=== PATIENT | male | born 1960 | race Caucasian/White ===

== ENCOUNTER 2016-04-27 11:31 | Outpatient (CLI) | payer MEDICARE | END 2016-04-27 11:32 | disposition home or self-care (01) | DX: Z00.00 Encounter for general adult medical examination without abnormal findings (principal); E78.5 Hyperlipidemia, unspecified; I10 Essential (primary) hypertension ==

== ENCOUNTER 2016-05-06 10:43 | Outpatient (CLI) | payer MEDICARE | END 2016-05-06 10:44 | disposition home or self-care (01) | DX: Z12.5 Encounter for screening for malignant neoplasm of prostate (principal) | CPT/HCPCS: 36415; G0103 ==

== ENCOUNTER 2016-12-08 11:30 | Outpatient (CLI) | payer MEDICARE | END 2016-12-08 11:45 | disposition home or self-care (01) | LOC: RT.N 11:30 | PROVIDERS: ATTEND Nurse Practitioner Gerontology | DX: I49.3 Ventricular premature depolarization (principal) | CPT/HCPCS: 93005 ==

== ENCOUNTER 2017-06-03 23:28 | Outpatient (CLI) | payer MEDICARE | END 2017-06-03 23:29 | disposition critical access hospital (66) | LOC: EMS 23:28 | PROVIDERS: ATTEND Surgery | DX: K92.0 Hematemesis (principal); K92.1 Melena | CPT/HCPCS: A0425; A0427 ==

== ENCOUNTER 2017-06-03 23:49 | Inpatient (IN) | payer MEDICARE ==
[2017-06-03] MEDS ORDERED: LORazepam 2 MG/ML VIAL IVP STA (23:57)
[2017-06-03] MEDS ORDERED: PANTOPRAZOLE 40 MG VIAL IVP STA (23:57)
[2017-06-03] MEDS ORDERED: ONDANSETRON 4 MG/2 ML VIAL IVP STA (23:57)
[2017-06-03] MEDS ORDERED: SODIUM CHLORIDE 0.9% 1,000 ML IV ONE (23:57)
[2017-06-03] MEDS ORDERED: OCTREOTIDE 100 MCG/ML VIAL IVP STA (23:59)
[2017-06-04 00:08] LABS: BASOPHILS # (AUTO) 0.1 10^3/uL (0.0-0.1); BASOPHILS % (AUTO) 1.5 %; EOSINOPHILS % (AUTO) 0.1 %; HGB - HEMOGLOBIN 16.4 g/dL (14.0-18.0); LYMPHOCYTES # (AUTO) 1.2 10^3/uL (1.5-3.5); LYMPHOCYTES % (AUTO) 12.9 %; MEAN CORPUSCULAR HEMOGLOBIN 36.8 pg (27.0-31.0); MEAN CORPUSCULAR HGB CONC 35.1 g/dL (32.0-36.0); MEAN CORPUSCULAR VOLUME 104.9 fL (80.0-94.0); MEAN PLATELET VOLUME 9.9 fL (7.4-11.4); MONOCYTES # (AUTO) 0.8 10^3/uL (0.0-1.0); MONOCYTES % (AUTO) 7.9 %; NEUTROPHILS # (AUTO) 7.4 10^3/uL (1.5-6.6); NEUTROPHILS % (AUTO) 77.6 %; PLT - PLATELET COUNT 121 10^3/uL (130-450); RED BLOOD COUNT 4.44 10^6/uL (4.70-6.10); RED CELL DISTRIBUTION WIDTH 13.5 % (12.0-15.0); WHITE BLOOD COUNT 9.5 x10^3/uL (4.8-10.8)
--- NOTE | 2017-06-04 00:26 | XRAY Report ---
EXAM: CHEST RADIOGRAPHY EXAM DATE: 06/04/2017 12:17 AM. CLINICAL HISTORY: Gi bleed. COMPARISON: None. TECHNIQUE: 1 view. FINDINGS: Lungs/Pleura: Probable right perihilar bleb with surrounding scarring and/or atelectasis. No evidence of acute airspace consolidation. No pleural effusion or pneumothorax. Mediastinum: Within exam limitations, the cardiomediastinal contour is normal. Other: None. IMPRESSION: No acute cardiopulmonary process. [facility] Referring Provider Line: [phone] SITE ID: [id number]
[2017-06-04] MEDS ORDERED: LORazepam 2 MG/ML VIAL IVP STA (00:27)
[2017-06-04 00:28] LABS: INR 1.3 (0.8-1.2); PT - PROTHROMBIN TIME 14.2 secs (9.9-12.6)
[2017-06-04 00:39] LABS: ALBUMIN 3.7 g/dL (3.2-5.5); ALBUMIN/GLOBULIN RATIO 1.1 (1.0-2.2); ALKALINE PHOSPHATASE 78 IU/L (42-121); ALT ALANINE AMINOTRANSFERASE 53 IU/L (10-60); AST ASPARTATE AMINOTRANSFERASE 86 IU/L (10-42); BILIRUBIN,TOTAL 1.9 mg/dL (0.2-1.0); BUN - BLOOD UREA NITROGEN 31 mg/dL (6-20); CALCIUM 9.3 mg/dL (8.5-10.3); CARBON DIOXIDE - CO2 23 mmol/L (21-32); CHLORIDE 94 mmol/L (101-111); CREATININE 1.1 mg/dL (0.6-1.2); GFR - MDRD 70 (>89); GLUCOSE 168 mg/dL (70-100); LIPASE 14 U/L (22-51); SODIUM 136 mmol/L (135-145)
[2017-06-04] MEDS ORDERED: THIAMINE INJ 100 MG in SODIUM CHLORIDE 0.9% 50 ML IV STA (00:43)
[2017-06-04] MEDS ORDERED: FOLIC ACID INJ 1 MG in SODIUM CHLORIDE 0.9% 1,000 ML IV STA (00:43)
[2017-06-04] MEDS ORDERED: MAGNESIUM SULFATE 2 GRAM 2 GM/50 ML BAG IV ONE (00:43)
[2017-06-04 00:54] LABS: MAGNESIUM 0.9 mg/dL (1.7-2.8)
--- NOTE | 2017-06-04 01:12 | ED Physician Documentation ---
PD HPI GI BLEED - Stated complaint Stated Complaint: N/V - Chief complaint Chief Complaint: Abd Pain - History obtained from History obtained from: Patient, EMS - History of Present Illness Timing - onset: How many days ago (3) Timing - details: Gradual onset, Still present Associated symptoms: Vomiting, Hematemesis, Black/tarry stool Contributing factors: Alcohol use Improved by: Eating Similar symptoms before: Has not had sx before Recently seen: Not recently seen - Additional information Additional information: Patient is a 56 year old male with a history of daily alchol abuse, he states 4- 6 glasses of wine a day. Patient states that he has been vomiting for the last 4 days. He states that it was originally blood tinged by then it turned into excessive blood and dark stools. Patient states that his last drink was two days ago. Review of Systems Constitutional: denies: Fever, Chills Eyes: denies: Decreased vision Ears: reports: Reviewed and negative Nose: reports: Reviewed and negative Throat: denies: Sore throat Cardiac: reports: Palpitations. denies: Chest pain / pressure Respiratory: denies: Dyspnea, Cough GI: reports: Abdominal Pain, Nausea, Vomiting, Hematemesis, Bloody / black stool : reports: Reviewed and negative Skin: denies: Rash, Lesions Neurologic: reports: Altered mental status, Other (tremors). denies: Generalized weakness, Focal weakness Immunocompromised: denies: Immunocompromised PD PAST MEDICAL HISTORY - Past Medical History Cardiovascular: Hypertension Respiratory: None Endocrine/Autoimmune: None GI: None : None HEENT: Chronic vision loss Psych: None Musculoskeletal: Chronic back pain, Other Derm: None - Past Surgical History General: Other Derm: Skin grafts - Present Medications Home Medications: Ambulatory Orders Medication Instructions Recorded Confirmed Amitriptyline [Elavil] 25 mg PO HS 07/09/13 07/09/13 Hydrochlorothiazide 12.5 DAILY 07/09/13 07/09/13 Lisinopril [Zestril] 10 mg PO DAILY 07/09/13 07/09/13 Pravastatin Sodium [Pravachol] 20 mg PO 07/09/13 07/09/13 Losartan [Cozaar] 50 mg PO DAILY 06/04/17 - Allergies Allergies/Adverse Reactions: Allergies Allergy/AdvReac Type Severity Reaction Status Date / Time ibuprofen AdvReac Severe Dizziness Verified 06/03/17 23:55 - Social History Does the pt smoke?: Yes Smoking Status: Current every day smoker Does the pt drink ETOH?: Yes ETOH Use: Wine Does the pt have substance abuse?: No - Immunizations Immunizations are current?: Yes PD ED PE NORMAL - Vitals Vital signs reviewed: Yes - General General: Alert and oriented X 3 - HEENT HEENT: Atraumatic - Neck Neck: Supple, no meningeal sign - Respiratory Respiratory: No respiratory distress - Derm Derm: Normal color, Warm and dry - Extremities Extremities: No deformity - Neuro Neuro: Alert and oriented X 3 Eye Opening: Spontaneous Motor: Obeys Commands Verbal: Oriented GCS Score: 15 PD ED PE EXPANDED - General General: Alert, Disheveled, poorly kept - HEENT HEENT: Dry mucous membranes - Cardiac Cardiac: Tachy - Abdomen Abdomen: Tender to palpation, Epigastric - Neuro Neuro: Other (active tremors) Results - Vitals Vitals: Vital Signs - 24 hr 06/03/17 06/04/17 06/04/17 23:49 00:20 00:43 Temperature 36.9 C Heart Rate 140 H 124 H 121 H Respiratory 20 19 20 Rate Blood Pressure 150/99 H 134/95 H 114/74 O2 Saturation 98 94 96 06/04/17 01:11 Temperature Heart Rate 121 H Respiratory 23 Rate Blood Pressure 104/76 O2 Saturation 98 Oxygen O2 Source Nasal cannula Oxygen Flow Rate 2 - EKG (time done) 0037 Rate: Rate (enter#) (135) Rhythm: Sinus tachycardia Hawley: LAD Intervals: Normal MA Other comments: Other comments (rate related ischemia, occasional pvc) Compare to prior EKG: Other - Labs Labs: Laboratory Tests 06/04/17 06/04/17 06/04/17 00:01 00:01 00:01 WBC 9.5 RBC 4.44 L Hgb 16.4 Hct 46.6 MCV 104.9 H MCH 36.8 H MCHC 35.1 RDW 13.5 Plt Count 121 L MPV 9.9 Neut # 7.4 H Lymph # 1.2 L [place] # 0.8 Eos # 0.0 Baso # 0.1 Absolute Nucleated RBC 0.00 Nucleated RBC % 0.0 PT 14.2 H INR 1.3 H APTT 29.2 Sodium 136 Potassium 4.3 Chloride 94 L Carbon Dioxide 23 Anion Gap 19.0 H BUN 31 H Creatinine 1.1 Estimated GFR (MDRD) 70 L Glucose 168 H Calcium 9.3 Phosphorus 3.0 Magnesium 0.9 L* Total Bilirubin 1.9 H AST 86 H ALT 53 Alkaline Phosphatase 78 Troponin I Total Protein 7.0 Albumin 3.7 Globulin 3.3 Albumin/Globulin Ratio 1.1 Lipase 14 L Ethyl Alcohol < 5.0 Blood Type Antibody Screen 06/04/17 06/04/17 00:01 00:01 WBC RBC Hgb Hct MCV MCH MCHC RDW Plt Count MPV Neut # Lymph # [place] # Eos # Baso # Absolute Nucleated RBC Nucleated RBC % PT INR APTT Sodium Potassium Chloride Carbon Dioxide Anion Gap BUN Creatinine Estimated GFR (MDRD) Glucose Calcium Phosphorus Magnesium Total Bilirubin AST ALT Alkaline Phosphatase Troponin I < 0.04 Total Protein Albumin Globulin Albumin/Globulin Ratio Lipase Ethyl Alcohol Blood Type A POSITIVE Antibody Screen NEGATIVE - Rads (name of study) chest x-ray Radiology: Final report received (cardiomegaly) PD MEDICAL DECISION MAKING - ED course Complexity details: reviewed old records, reviewed results, re-evaluated patient , considered differential, d/w patient, d/w [employer] ax consultant ED course: Patient was seen and examined at bedside immediately. IV access was gained and labs were drawn. Patient was treated with IV fluids, zofran, octreotide, protonix and ativan 2 mg as patient was tremulous, tachycardic and going through withdrawal. ekg was perfromed which showed sinus tach. Patient's tremors imporved slightly with the ativan but remained tachycardic and was treated with additional 2mg of ativan. Patient's blood pressure and h/h were stable. Case was discussed with dr. lopez who stated he would scope the patient in a couple of days when the withdrawal stopped. Hospitalist was contacted and the case was discussed with her. Patient was admitted to the icu for further evaluation and care. - Critical Care Time(min): 30 Time Includes: Direct patient care, Review records, Reassess patient, Document care, Coordinate care Data interpretation: Labs, CXR, See progress note Departure - Departure Disposition: 66 [facility] DC/Xfer Clinical Impression: Alcohol withdrawal delirium, acute, hyperactive, GI bleed Condition: Critical Discharge Date/Time: 06/04/17 02:10
[2017-06-04] MEDS ORDERED: TEMAZEPAM 15 MG CAPSULE PO PRN (01:27)
[2017-06-04] MEDS: D5.45NS W/20 MEQ KCL 1,000 ML IV SCH ×3 (03:14→21:48)
[2017-06-04] MEDS: LORazepam 2 MG/ML VIAL IVP SCH ×6 (03:15→23:48)
[2017-06-04] MEDS: SODIUM CHLORIDE FLUSH 0.9% 10 ML SYRINGE IVP PRN ×2 (03:15→16:09)
[2017-06-04] MEDS: MAGNESIUM SULFATE 2 GRAM 2 GM/50 ML BAG IV SCH ×4 (03:24→09:34)
--- NOTE | 2017-06-04 05:19 | HISTORY & PHYSICAL EXAMINATION ---
Chief Complaint - Chief Complaint Chief Complaint: GI bleed History of Present Illness - Admitted From Admitted From:: EMS - History Obtained From Records Reviewed: yes History obtained from: records, patient, Dr De Leon Exam Limitations: Pt is heavily intoxicated - History of Present Illness HPI Comment/Other: Mr. Mark Perez is a 56-year-old gentleman with a history of alcoholism who was brought into the emergency department by EMS earlier this evening. EMS reports that they saw the patient vomited blood and there also reports of possible bleeding per rectum. He is heavily intoxicated and was in the same condition when found in the field by EMS. He is unable to tell me why he is in the emergency department and is an extremely poor historian at this time. History - Past Medical History Cardiovascular: reports: Hypertension Respiratory: reports: None Neuro: reports: Head injury, Peripheral neuropathy, Fainting Endocrine/Autoimmune: reports: None GI: reports: GERD : reports: None HEENT: reports: Chronic vision loss Psych: reports: Post traumatic stress disorder Musculoskeletal: reports: Chronic back pain, Other Derm: reports: None MRSA Hx?: No - Past Surgical History General: reports: Other Derm: reports: Skin grafts - Family & Social History Family History: Mother: , Alcoholism, Father: , CVA/TIA, Other family: Hyperlipidemia, Hypertension Living arrangement: At home Living Situation: Alone - Substance History Use: Uses substance without health or social issues: NONE Abuse: Recurrent use of substance despite neg consequences: Alcohol Dependence: Experiences withdrawal or developed tolerances: Tobacco, Alcohol Tobacco Details: Cigarettes - POLST Patient has POLST: No POLST Status: Full Code Meds/Allgy - Home Medications Home Medications: Ambulatory Orders Medication Instructions Recorded Confirmed Amitriptyline [Elavil] 25 mg PO HS 07/09/13 07/09/13 Hydrochlorothiazide 12.5 DAILY 07/09/13 07/09/13 Lisinopril [Zestril] 10 mg PO DAILY 07/09/13 07/09/13 Pravastatin Sodium [Pravachol] 20 mg PO 07/09/13 07/09/13 Losartan [Cozaar] 50 mg PO DAILY 06/04/17 - Allergies Allergies/Adverse Reactions: Allergies Allergy/AdvReac Type Severity Reaction Status Date / Time ibuprofen AdvReac Severe Dizziness Verified 06/03/17 23:55 Review of Systems - Constitutional Constitutional: reports: Other (The patient is intoxicated and is a very poor historian.). denies: Fatigue, Fever, Weakness, Diaphoresis - Eyes Eyes: denies: Pain, Amaurosis, Blurred vision, Field loss, Vision loss - Ears, Nose & Throat Ears, Nose & Throat: denies: Ear pain, Vertigo, Nosebleeds, Nasal obstruction, Dentures - Cardiovascular Cariovascular: denies: Irregular heart rate, Palpitations, Chest pain, Edema - Respiratory Respiratory: denies: Cough, Wheezing, Snoring, Hemoptysis, SOB at rest - Gastrointestinal Gastrointestinal: denies: Abdominal pain, Abdominal distention, Constipation, Diarrhea, Rectal bleeding - Genitourinary Genitourinary: denies: Dysuria, Frequency, Urgency, Hematuria - Musculoskeletal Musculoskeletal: denies: Muscle pain, Back pain, Muscle aches, Stiffness - Integumentary Integumentary: denies: Rash, Pruritis, Lesions, Dryness - Neurological Neurological: denies: General weakness, Focal weakness, Headache, Dizziness - Psychiatric Psychiatric: denies: Depression, Anxiety, Suicidal, Hallucinations - Endocrine Endocrine: denies: Polyuria, Polydypsia, Polyphagia - Hematologic/Lymphatic Hematologic/Lymphatic: denies: Anemia, Bruising, Petechiae, Lymphadenopathy - All Other Systems All Other Systems: reports: Reviewed and negative Exam - Vital Signs Reviewed Vital Signs: Yes Vital Signs: Vital Signs x48h Temp Pulse Pulse Resp BP BP Pulse Ox 06/04/17 02:30 36.9 C 123 H 18 125/83 H 97 06/04/17 01:49 109 H 21 107/79 94 - Physical Exam General Appearance: positive: Mild distress, Lethargic, Other (intoxicated) Eyes Bilateral: positive: Normal inspection, PERRL, EOMI, No lid inflammation ENT: positive: ENT inspection nml, Pharynx nml, No signs of dehydration Neck: positive: Nml inspection, Thyroid nml, No JVD, Trachea midline. negative : Thyromegaly Respiratory: positive: Chest non-tender, No respiratory distress, Breath sounds nml. negative: Wheezes, Rales, Rhonchi Cardiovascular: positive: Regular rate & rhythm, No murmur, No gallop Peripheral Pulses: positive: 2+ Abdomen: positive: Non-tender, No organomegaly, Nml bowel sounds, No distention. negative: Guarding, Rebound Back: positive: Nml inspection. negative: CVA tenderness (R), CVA tenderness (L ) Skin: positive: Color nml, No rash, Warm, Dry. negative: Cyanosis Extremities: positive: Non-tender, Full ROM, Nml appearance, No pedal edema Neurologic/Psychiatric: positive: Disoriented to place, Disoriented to time, Weakness, Slurred/abnml speech. negative: Facial droop Conclusion/Plan - Problem List (1) GI bleed Conclusion/Plan: We have consulted general surgery and have made the patient n.p.o. We will give him IV fluids and a proton pump inhibitor to help heal the gastritis in his GI tract. I will give the patient Carafate as long as he is not going to have an endoscopy today. (2) Alcohol withdrawal delirium, acute, hyperactive Conclusion/Plan: At this time I have the patient on Lorazepam [id number] and am confident that we can keep the patient from going into delirium tremens. He already appears much more comfortable. (3) HTN (hypertension) Conclusion/Plan: Well-managed, continue lisinopril, hydrochlorothiazide, and Cozaar. (4) Hyperlipidemia Conclusion/Plan: Continue Pravachol. - Lab Results Lab results reviewed: Yes Fish Bones: 06/04/17 00:01 06/04/17 00:01 - Diagnostic Imaging Results Diagnostic Imaging Results: positive: Final report reviewed Diagnostic Imaging Results Comments: EXAM: CHEST RADIOGRAPHY EXAM DATE: 06/04/2017 12:17 AM. CLINICAL HISTORY: Gi bleed. COMPARISON: None. TECHNIQUE: 1 view. FINDINGS: Lungs/Pleura: Probable right perihilar bleb with surrounding scarring and/or atelectasis. No evidence of acute airspace consolidation. No pleural effusion or pneumothorax. Mediastinum: Within exam limitations, the cardiomediastinal contour is normal. Other: None. IMPRESSION: No acute cardiopulmonary process. - EKG Results EKG Interpreted Independently: Yes EKG Comparison: Old EKG unavailable EKG Findings: Sinus tachycardia, rate 135. 1 PVC noted. Core Measures - Anticipated LOS I expect patient to be DC'd or transferred within 96 hours.: Yes - DVT/VTE - Prophylaxis VTE/DVT Device ordered at admit?: Yes
[2017-06-04] MEDS: PANTOPRAZOLE 40 MG VIAL IVP SCH ×2 (08:37→16:09)
[2017-06-04] MEDS ORDERED: POLYETHYLENE GLYCOL 3350 17 GM PACKET PO SCH (09:00)
[2017-06-04] MEDS: SODIUM CHLORIDE FLUSH 0.9% 10 ML SYRINGE IVP SCH ×3 (09:55→21:48)
[2017-06-04] MEDS: SUCRALFATE 1 GM/10 ML UDC PO SCH ×5 (10:44→21:35)
[2017-06-04] MEDS: LOSARTAN 50 MG TABLET PO SCH ×2 (10:45→11:12)
[2017-06-04] MEDS ORDERED: ZINC OXIDE 20% OINT 28.35 GM TUBE TOP PRN (11:59)
[2017-06-04 14:56] LABS: BASOPHILS # (AUTO) 0.1 10^3/uL (0.0-0.1); BASOPHILS % (AUTO) 0.6 %; EOSINOPHILS % (AUTO) 0.2 %; HGB - HEMOGLOBIN 10.1 g/dL (14.0-18.0); LYMPHOCYTES # (AUTO) 2.2 10^3/uL (1.5-3.5); LYMPHOCYTES % (AUTO) 18.3 %; MEAN CORPUSCULAR HGB CONC 34.3 g/dL (32.0-36.0); MEAN PLATELET VOLUME 9.6 fL (7.4-11.4); MONOCYTES % (AUTO) 8.5 %; NEUTROPHILS # (AUTO) 8.6 10^3/uL (1.5-6.6); NEUTROPHILS % (AUTO) 72.4 %; PLT - PLATELET COUNT 119 10^3/uL (130-450); RED BLOOD COUNT 2.81 10^6/uL (4.70-6.10); RED CELL DISTRIBUTION WIDTH 13.3 % (12.0-15.0); WHITE BLOOD COUNT 11.9 x10^3/uL (4.8-10.8)
[2017-06-04 15:04] LABS: MEAN CORPUSCULAR VOLUME 104.9 fL (80.0-94.0)
[2017-06-04] MEDS: PROCHLORPERAZINE 10 MG/2 ML VIAL IVP PRN ×2 (16:09→22:59)
[2017-06-04] MEDS ORDERED: SODIUM CHLORIDE 0.9% 2,000 ML IV ONE (16:24)
--- NOTE | 2017-06-04 16:39 | CONSULTATION NOTE ---
Referring Provider Name of Referring Provider:: George De Leon MD/Debbi Vela MD Consult Date: 06/03/17 Chief Complaint - Chief Complaint Chief Complaint: Gastrointestinal bleeding in the background of alcohol withdrawal History of Present Illness - Admitted From Admitted From:: [facility] - History Obtained From Records Reviewed: Yes History obtained from: Primarily the chart as the patient cannot give a cogent history Exam Limitations: Patient's inability to give a cogent history - History of Present Illness HPI Comment/Other: I was on my way to see this patient on consult (actually 2 doors down on [address]) when I was informed that the patient was having increasing bowel movements that changed from melanotic to burgandy in color and he started dropping his blood pressure. I immediately went to his room and the patient was found in Trendelenberg position with a blood pressure of high 80's over high 50's. The patient was tachycardic. The patient was extremely somnolent and I was told that he had recently been given Ativan. He was able to tell me that he had not taken any NSAIDs recently and that he has never had these symptoms previously. Then I was unable to get any cogent answers from him. Chart review indicates a drinking history. He has had a previous colonoscopy by Dr. Shearer in 2014. History - Past Medical History Cardiovascular: reports: Hypertension Respiratory: reports: None Neuro: reports: Head injury, Peripheral neuropathy, Fainting Endocrine/Autoimmune: reports: None GI: reports: GERD : reports: None HEENT: reports: Chronic vision loss Psych: reports: Post traumatic stress disorder Musculoskeletal: reports: Chronic back pain, Other Derm: reports: None MRSA Hx?: No - Past Surgical History General: reports: Other Derm: reports: Skin grafts - Family & Social History Family History: Mother: , Alcoholism, Father: , CVA/TIA, Other family: Hyperlipidemia, Hypertension Living arrangement: At home Living Situation: Alone - Substance History Use: Uses substance without health or social issues: NONE Abuse: Recurrent use of substance despite neg consequences: Alcohol Dependence: Experiences withdrawal or developed tolerances: Tobacco, Alcohol Tobacco Details: Cigarettes - POLST Patient has POLST: No POLST Status: Full Code Meds/Allgy - Home Medications Home Medications: Ambulatory Orders Medication Instructions Recorded Confirmed Amitriptyline [Elavil] 25 mg PO QPM 07/09/13 06/04/17 Losartan [Cozaar] 50 mg PO DAILY 06/04/17 06/04/17 traZODone [Desyrel] 50 mg PO QPM PRN 06/04/17 06/04/17 - Allergies Allergies/Adverse Reactions: Allergies Allergy/AdvReac Type Severity Reaction Status Date / Time ibuprofen AdvReac Severe Dizziness Verified 06/03/17 23:55 Review of Systems - Other Findings Other Findings: Could not be obtained due to patient's mental status. Exam - Vital Signs Reviewed Vital Signs: Yes Vital Signs: Vital Signs x48h Temp Pulse Resp BP Pulse Ox 06/04/17 16:32 83/57 L 06/04/17 16:27 113 H 90/60 06/04/17 16:18 136 H 88/58 L 06/04/17 15:36 36.8 C 132 H 18 84/48 L 95 06/04/17 11:54 36.9 C 112 H 18 102/72 97 06/04/17 11:10 116 H 101/75 06/04/17 08:36 36.7 C 116 H 116 H 106/74 93 - Physical Exam General Appearance: positive: Other (Somnolent.) Eyes Bilateral: positive: No lid inflammation, Conjunctivae nml, No scleral icterus, Other (Red face.) Neck: positive: Trachea midline Respiratory: positive: Breath sounds nml, Other (Breath sounds bilaterally.) Cardiovascular: positive: Tachycardia Abdomen: positive: Non-tender, Nml bowel sounds Neurologic/Psychiatric: positive: Other (Somnolent.) Conclusion/Plan - Diagnosis Diagnosis: Gastrointestinal hemorrhage. - Plan Plan: Emergent EGD. The patient is not consentable. I called his sister, Cornelia Wick (at [phone]) and left a message as there was not answer. The patient's clinical course is such that he should be scoped emergently and if consent cannot be obtained it should be done without consent. If varices are found to be the answer then the patient will have to be transported emergently for treatment at a tertiary care center. An SB tube may need to be placed. Injections are possible as is emergent surgery. I will order a T&C and start transfusing the patient as he is symptomatic. - Lab Results Lab results reviewed: Yes Fish Bones: 06/04/17 14:52 06/04/17 00:01
[2017-06-04] MEDS ORDERED: SODIUM CHLORIDE 0.9% 1,000 ML IV ONE ×4 (16:47→18:45)
--- NOTE | 2017-06-04 16:56 | PROVIDER PROGRESS NOTE ---
Hospitalist Cross-cover Note - Cross-Cover Note Cross-Cover Note: Pt had no further N/V today, ND minimal abdominal pain. He started to have increased frequency of tarry then maroon stools. At about 4:40 pm, BP dropped to 70-80 systolic and HR francie from 85 to 135. He was more tremulous and diaphoretic and Ativan dose was increased earlier in the day. Physical Exam: No rales, No murmur, No abdominal pain, guarding or rebound. Dr Hastings had just started to examine patient and do his consult as VS changed. Plan: Will transfer him to ICU. Saline 1L wide open. STAT Type and Cross 4 units PRBCs. Possible emergency upper endoscopy today by Dr Hastings.
[2017-06-04] MEDS ORDERED: EPINEPHrine 1 MG/ML AMP SUBQ ONE (17:45)
[2017-06-04] MEDS ORDERED: EPINEPHrine 1 MG/ML VIAL ONE (18:12)
[2017-06-04] MEDS ORDERED: ROCURONIUM 50 MG/5 ML VIAL IVP ONE (18:50)
[2017-06-04] MEDS ORDERED: NEOSTIGMINE 1 MG/1 ML 10 ML MDV IVP ONE (18:50)
[2017-06-04] MEDS ORDERED: KETAMINE 500 MG/10 ML VIAL IVP ONE (18:50)
[2017-06-04] MEDS ORDERED: GLYCOPYRROLATE 1 MG/5 ML VIAL IVP ONE (18:50)
[2017-06-04] MEDS: AMITRIPTYLINE 25 MG TABLET PO SCH (21:35)
[2017-06-05] MEDS: LORazepam 2 MG/ML VIAL IVP SCH ×5 (04:00→20:36)
[2017-06-05 05:01] LABS: BASOPHILS # (AUTO) 0.1 10^3/uL (0.0-0.1); BASOPHILS % (AUTO) 1.1 %; EOSINOPHILS % (AUTO) 0.2 %; LYMPHOCYTES # (AUTO) 2.7 10^3/uL (1.5-3.5); LYMPHOCYTES % (AUTO) 28.3 %; MEAN CORPUSCULAR HEMOGLOBIN 33.6 pg (27.0-31.0); MEAN CORPUSCULAR HGB CONC 33.9 g/dL (32.0-36.0); MEAN CORPUSCULAR VOLUME 99.2 fL (80.0-94.0); MEAN PLATELET VOLUME 10.2 fL (7.4-11.4); MONOCYTES # (AUTO) 0.7 10^3/uL (0.0-1.0); MONOCYTES % (AUTO) 7.5 %; NEUTROPHILS % (AUTO) 62.9 %; PLT - PLATELET COUNT 72 10^3/uL (130-450); RED BLOOD COUNT 2.68 10^6/uL (4.70-6.10); RED CELL DISTRIBUTION WIDTH 18.2 % (12.0-15.0); WHITE BLOOD COUNT 9.5 x10^3/uL (4.8-10.8)
[2017-06-05 05:22] LABS: ALBUMIN 2.3 g/dL (3.2-5.5); ALBUMIN/GLOBULIN RATIO 1.3 (1.0-2.2); CREATININE 0.8 mg/dL (0.6-1.2); MAGNESIUM 1.8 mg/dL (1.7-2.8); TOTAL PROTEIN 4.1 g/dL (6.7-8.2)
[2017-06-05 05:27] LABS: CALCIUM 6.1 mg/dL (8.5-10.3)
[2017-06-05] MEDS: D5.45NS W/20 MEQ KCL 1,000 ML IV SCH ×3 (05:55→22:22)
[2017-06-05] MEDS: SUCRALFATE 1 GM/10 ML UDC PO SCH ×4 (06:32→22:25)
[2017-06-05] MEDS: PANTOPRAZOLE 40 MG VIAL IVP SCH ×2 (06:32→16:08)
[2017-06-05] MEDS: PRENATAL VITAMIN TABLET PO SCH (08:14)
[2017-06-05] MEDS: LOSARTAN 50 MG TABLET PO SCH (09:02)
[2017-06-05] MEDS: SODIUM CHLORIDE FLUSH 0.9% 10 ML SYRINGE IVP SCH ×2 (11:24→16:08)
--- NOTE | 2017-06-05 12:49 | PROVIDER PROGRESS NOTE ---
Assessment/Plan - Problem List (1) Bleeding esophageal varix Assessment/Plan: No further signs of bleeding. Will change diet from NPO to clear liquids. Will await for Dr Hastings to direct when a solid diet can be started. Continue stress ulcer prophylaxis. (2) Anemia due to acute blood loss Assessment/Plan: Pt did get transfuse 2 U PRBCs. Watching H/H twice a day. (3) Alcohol withdrawal delirium, acute, hyperactive Assessment/Plan: Pt on Ativan prn withdrawl and CIWA protocol. (4) Alcohol abuse Assessment/Plan: Elevated AST and bili, also MCV and has pancytopenia. Alcohol abstinence advised, but he told his RN he will resume drinking after DCh. - Current Meds Current Meds: Current Medications Generic Name Dose Route Start Last Admin Trade Name Freq PRN Reason Stop Dose Admin Amitriptyline HCl 25 mg 06/04/17 21:00 06/04/17 21:35 Elavil PO 25 mg QPM JOSÉ MIGUEL Administration Potassium Chloride/Dextrose/Sod Cl 1,000 mls @ 125 mls/hr 06/04/17 02:00 08/18 05:55 D5.45ns W/20 Meq Kcl IV 125 mls/hr .Q8H JOSÉ MIGUEL Administration Lorazepam 1 mg 06/05/17 12:00 06/05/17 12:26 Ativan Inj (Vial) IVP 1 mg Q4H JOSÉ MIGUEL Administration Losartan Potassium 50 mg 06/04/17 11:13 06/05/17 09:02 Cozaar PO Not Given DAILY JOSÉ MIGUEL Pantoprazole Sodium 40 mg 06/04/17 07:00 06/05/17 06:32 Protonix IVP 40 mg BIDAC JOSÉ MIGUEL Administration Multivit/Folic Acid/Iron 1 tab 06/05/17 08:00 06/05/17 08:14 Trinatal Rx 1 PO Not Given DAILYWM JOSÉ MIGUEL Prochlorperazine Edisylate 10 mg 06/04/17 01:27 06/04/17 22:59 Compazine Inj IVP 10 mg Q6HR PRN Administration Nausea / Vomiting Sodium Chloride 10 ml 06/04/17 01:27 06/04/17 16:09 Normal Saline Flush 0.9% IVP 10 ml PRN PRN Administration NEEDED PER PROVIDER ORDERS Sodium Chloride 10 ml 06/04/17 09:00 06/05/17 11:24 Normal Saline Flush 0.9% IVP 10 ml 0100,0900,1700 JOSÉ MIGUEL Administration Sucralfate 1 gm 06/04/17 10:00 06/05/17 11:23 Carafate PO 1 gm 0700,1100,1600,2200 JOSÉ MIGUEL Administration - Lab Result Fish Bone Diagrams: 06/05/17 04:47 06/05/17 04:47 - Additional Planning My Orders: My Active Orders 06/05/17 08:00 Vitamin [Trinatal Rx 1] 1 tab PO DAILYWM 06/05/17 12:00 LORazepam INJ [Ativan Inj (Vial)] 1 mg IVP Q4H 06/05/17 15:00 HCT - HEMATOCRIT [HEME] Timed HGB - HEMOGLOBIN [HEME] Timed MAGNESIUM [CHEM] Timed 06/05/17 Lunch Clear Liquid Diet [DIET] Subjective - Subjective Patient Reports: Resting Comfortably Nursing Reports: Other (No more tarry BMs or any BMs. Pt was tremulous and did get Ativan this am.) Objective Vital Signs: Vital Signs - 24 hr 06/04/17 06/04/17 06/04/17 15:36 16:18 16:27 Temperature 36.8 C Heart Rate Heart Rate [ 132 H 136 H 113 H Brachial] Heart Rate [ Monitoring electrodes] Respiratory 18 Rate Blood Pressure Blood Pressure 84/48 L 88/58 L 90/60 [Right Brachial artery] O2 Saturation 95 06/04/17 06/04/17 06/04/17 16:32 16:45 17:02 Temperature Heart Rate Heart Rate [ 119 H 123 H Brachial] Heart Rate [ Monitoring electrodes] Respiratory 24 Rate Blood Pressure Blood Pressure 83/57 L 80/60 L 93/64 [Right Brachial artery] O2 Saturation 06/04/17 06/04/17 06/04/17 17:18 18:45 18:50 Temperature Heart Rate Heart Rate [ 128 H Brachial] Heart Rate [ Monitoring electrodes] Respiratory 28 H Rate Blood Pressure Blood Pressure 89/59 L [Right Brachial artery] O2 Saturation 98 100 06/04/17 06/04/17 06/04/17 18:55 19:00 19:05 Temperature Heart Rate Heart Rate [ Brachial] Heart Rate [ 121 H Monitoring electrodes] Respiratory 16 Rate Blood Pressure Blood Pressure 113/80 [Right Brachial artery] O2 Saturation 100 100 100 06/04/17 06/04/1718 19:15 19:25 19:30 Temperature 37.3 C Heart Rate Heart Rate [ Brachial] Heart Rate [ 123 H 130 H 120 H Monitoring electrodes] Respiratory 19 17 13 Rate Blood Pressure Blood Pressure 111/77 122/81 H 111/92 H [Right Brachial artery] O2 Saturation 100 98 99 06/04/17 06/04/17 06/04/17 19:46 20:00 20:05 Temperature 37.3 C 37.2 C Heart Rate 120 H 115 H Heart Rate [ Brachial] Heart Rate [ 123 H Monitoring electrodes] Respiratory 16 22 15 Rate Blood Pressure 106/74 108/83 H Blood Pressure 106/75 [Right Brachial artery] O2 Saturation 98 06/04/17 06/04/17 06/04/17 21:00 21:55 23:00 Temperature 37.2 C Heart Rate 118 H Heart Rate [ Brachial] Heart Rate [ 101 H 117 H Monitoring electrodes] Respiratory 15 16 22 Rate Blood Pressure Blood Pressure 99/81 H 114/82 H [Right Brachial artery] O2 Saturation 99 97 06/05/17 06/05/17 06/05/17 00:00 01:00 02:00 Temperature 36.8 C Heart Rate Heart Rate [ Brachial] Heart Rate [ 108 H 105 H 101 H Monitoring electrodes] Respiratory 18 18 19 Rate Blood Pressure Blood Pressure 115/71 116/80 96/70 [Right Brachial artery] O2 Saturation 100 100 99 06/05/17 06/05/17 06/05/17 03:00 04:00 05:00 Temperature 37.0 C Heart Rate Heart Rate [ Brachial] Heart Rate [ 102 H 98 92 Monitoring electrodes] Respiratory 20 17 17 Rate Blood Pressure Blood Pressure 96/63 104/56 L 101/69 [Right Brachial artery] O2 Saturation 99 97 100 06/05/17 06/05/17 06/05/17 06:00 07:13 08:00 Temperature 37.0 C Heart Rate Heart Rate [ Brachial] Heart Rate [ 89 117 H 99 Monitoring electrodes] Respiratory 16 14 21 Rate Blood Pressure Blood Pressure 91/56 L 103/75 106/76 [Right Brachial artery] O2 Saturation 100 99 06/05/17 06/05/17 06/05/17 09:00 10:00 10:18 Temperature Heart Rate Heart Rate [ Brachial] Heart Rate [ 96 98 96 Monitoring electrodes] Respiratory 20 17 18 Rate Blood Pressure Blood Pressure 89/65 L 99/71 99/71 [Right Brachial artery] O2 Saturation 99 100 100 06/05/17 12:00 Temperature Heart Rate Heart Rate [ Brachial] Heart Rate [ 94 Monitoring electrodes] Respiratory 14 Rate Blood Pressure Blood Pressure 105/62 [Right Brachial artery] O2 Saturation 98 Oxygen O2 Source Room air I&O (Last 24 Hrs): Intake and Output Totals x24h 06/03/17 06/04/17 06/05/17 23:59 23:59 23:59 Intake Total 6342.033 1300 Output Total 300 250 Balance 6042.033 1050 General: Other (Sleeping) HEENT: Mucous membr. moist/pink Neck: Supple Neuro: Other (Sedated) Cardiovascular: Regular rate, No murmurs Respiratory: No respiratory distress, Breath sounds nml Abdomen: Soft Extremities: No edema - Results Results: Laboratory Results WBC 9.5 x10^3/uL (4.8-10.8) 06/05/17 04:47 RBC 2.68 10^6/uL (4.70-6.10) L 06/05/17 04:47 Hgb 9.0 g/dL (14.0-18.0) L 06/05/17 04:47 Hct 26.6 % (42.0-52.0) L 06/05/17 04:47 MCV 99.2 fL (80.0-94.0) H 06/05/17 04:47 MCH 33.6 pg (27.0-31.0) H 06/05/17 04:47 MCHC 33.9 g/dL (32.0-36.0) 06/05/17 04:47 RDW 18.2 % (12.0-15.0) H 06/05/17 04:47 Plt Count 72 10^3/uL (130-450) L 06/05/17 04:47 MPV 10.2 fL (7.4-11.4) 06/05/17 04:47 Neut # 6.0 10^3/uL (1.5-6.6) 06/05/17 04:47 Lymph # 2.7 10^3/uL (1.5-3.5) 06/05/17 04:47 [place] # 0.7 10^3/uL (0.0-1.0) 06/05/17 04:47 Eos # 0.0 10^3/uL (0.0-0.7) 06/05/17 04:47 Baso # 0.1 10^3/uL (0.0-0.1) 06/05/17 04:47 Absolute Nucleated RBC 0.00 x10^3/uL 06/05/17 04:47 Nucleated RBC % 0.0 /100WBC 06/05/17 04:47 PT 14.2 secs (9.9-12.6) H 06/04/17 00:01 INR 1.3 (0.8-1.2) H 06/04/17 00:01 APTT 29.2 secs (24.9-33.3) 06/04/17 00:01 Sodium 138 mmol/L (135-145) 06/05/17 04:47 Potassium 3.9 mmol/L (3.5-5.0) 06/05/17 04:47 Chloride 114 mmol/L (101-111) H 06/05/17 04:47 Carbon Dioxide 23 mmol/L (21-32) 06/05/17 04:47 Anion Gap 1.0 (6-13) L 06/05/17 04:47 BUN 35 mg/dL (6-20) H 06/05/17 04:47 Creatinine 0.8 mg/dL (0.6-1.2) 06/05/17 04:47 Estimated GFR (MDRD) 101 (>89) 06/05/17 04:47 Glucose 133 mg/dL (70-100) H 06/05/17 04:47 Calcium 6.1 mg/dL (8.5-10.3) L* 06/05/17 04:47 Phosphorus 3.0 mg/dL (2.5-4.6) 06/04/17 00:01 Magnesium 1.8 mg/dL (1.7-2.8) 06/05/17 04:47 Total Bilirubin 1.0 mg/dL (0.2-1.0) 06/05/17 04:47 AST 28 IU/L (10-42) 06/05/17 04:47 ALT 20 IU/L (10-60) 06/05/17 04:47 Alkaline Phosphatase 40 IU/L (42-121) L 06/05/17 04:47 Troponin I < 0.04 ng/mL (<0.49) 06/04/17 00:01 Total Protein 4.1 g/dL (6.7-8.2) L 06/05/17 04:47 Albumin 2.3 g/dL (3.2-5.5) L 06/05/17 04:47 Globulin 1.8 g/dL (2.1-4.2) L 06/05/17 04:47 Albumin/Globulin Ratio 1.3 (1.0-2.2) 06/05/17 04:47 Lipase 14 U/L (22-51) L 06/04/17 00:01 Ethyl Alcohol < 5.0 mg/dL 06/04/17 00:01 Blood Type A POSITIVE 06/04/17 00:01 Blood Type Recheck A POSITIVE 06/04/17 14:52 Antibody Screen NEGATIVE 06/04/17 00:01 Crossmatch IS Only See Detail 06/04/17 00:01 - Procedures Procedures: Procedures ENDOSC POLYPECTOMY OF LG INTEST (07/09/13) ENDOSCOPIC BIOPSY OF RECTUM (07/09/13)
[2017-06-05 15:20] LABS: HGB - HEMOGLOBIN 8.1 g/dL (14.0-18.0)
[2017-06-05] MEDS: AMITRIPTYLINE 25 MG TABLET PO SCH (20:35)
--- NOTE | 2017-06-05 23:54 | PROVIDER PROGRESS NOTE ---
Subjective - General Admit Date: 06/04/17 Procedure Date: 06/04/17 Post Op Days: 1 Procedure Performed: EGD with control of bleeding (epinephrine injection AND cautery) - Review of Systems Wound/Incisions: positive: Other (There are no wounds.) General: positive: Other (Patient appears to be withdrawing from alcohol.) Gastrointestinal: positive: Melena (Some residual blood.). negative: Nausea, Vomiting All Other Systems: positive: Reviewed and negative Objective - Patient Data Reviewed Vital Signs: Yes Vital Signs: Vital Signs x48h Temp Pulse Resp BP Pulse Ox 06/05/17 23:00 89 20 92/53 L 06/05/17 22:00 79 17 123/61 06/05/17 21:00 83 20 95/64 93 06/05/17 20:00 36.8 C 85 18 103/62 100 06/05/17 19:00 82 21 92/71 100 06/05/17 17:58 89 104/64 100 06/05/17 17:00 82 104/64 100 06/05/17 16:00 36.9 C 78 16 107/64 100 Weight: Weight 06/03/17 06/04/17 06/05/17 23:59 23:59 23:59 Weight (kg) 72 kg Intake & Output: Intake and Output Totals x24h 06/03/17 06/04/17 06/05/17 23:59 23:59 23:59 Intake Total 6342.033 3900 Output Total 300 950 Balance 6042.033 2950 - Lab Results Lab Results: 06/05/17 15:08 06/05/17 04:47 Other Lab Results: Lab Results x24hrs 06/05/17 06/05/17 06/05/17 Range/Units 15:08 15:08 04:47 WBC 9.5 (4.8-10.8) x10^3/uL RBC 2.68 L (4.70-6.10) 10^6/uL Hgb 8.1 L 9.0 L (14.0-18.0) g/dL Hct 23.5 L 26.6 L (42.0-52.0) % MCV 99.2 H (80.0-94.0) fL MCH 33.6 H (27.0-31.0) pg MCHC 33.9 (32.0-36.0) g/dL RDW 18.2 H (12.0-15.0) % Plt Count 72 L (130-450) 10^3/uL MPV 10.2 (7.4-11.4) fL Neut # 6.0 (1.5-6.6) 10^3/uL Lymph # 2.7 (1.5-3.5) 10^3/uL [place] # 0.7 (0.0-1.0) 10^3/uL Eos # 0.0 (0.0-0.7) 10^3/uL Baso # 0.1 (0.0-0.1) 10^3/uL Absolute Nucleated RBC 0.00 x10^3/uL Nucleated RBC % 0.0 /100WBC Sodium (135-145) mmol/L Potassium (3.5-5.0) mmol/L Chloride (101-111) mmol/L Carbon Dioxide (21-32) mmol/L Anion Gap (6-13) BUN (6-20) mg/dL Creatinine (0.6-1.2) mg/dL Estimated GFR (MDRD) (>89) Glucose (70-100) mg/dL Calcium (8.5-10.3) mg/dL Magnesium 1.7 (1.7-2.8) mg/dL Total Bilirubin (0.2-1.0) mg/dL AST (10-42) IU/L ALT (10-60) IU/L Alkaline Phosphatase (42-121) IU/L Total Protein (6.7-8.2) g/dL Albumin (3.2-5.5) g/dL Globulin (2.1-4.2) g/dL Albumin/Globulin Ratio (1.0-2.2) 06/05/17 Range/Units 04:47 WBC (4.8-10.8) x10^3/uL RBC (4.70-6.10) 10^6/uL Hgb (14.0-18.0) g/dL Hct (42.0-52.0) % MCV (80.0-94.0) fL MCH (27.0-31.0) pg MCHC (32.0-36.0) g/dL RDW (12.0-15.0) % Plt Count (130-450) 10^3/uL MPV (7.4-11.4) fL Neut # (1.5-6.6) 10^3/uL Lymph # (1.5-3.5) 10^3/uL [place] # (0.0-1.0) 10^3/uL Eos # (0.0-0.7) 10^3/uL Baso # (0.0-0.1) 10^3/uL Absolute Nucleated RBC x10^3/uL Nucleated RBC % /100WBC Sodium 138 (135-145) mmol/L Potassium 3.9 (3.5-5.0) mmol/L Chloride 114 H (101-111) mmol/L Carbon Dioxide 23 (21-32) mmol/L Anion Gap 1.0 L (6-13) BUN 35 H (6-20) mg/dL Creatinine 0.8 (0.6-1.2) mg/dL Estimated GFR (MDRD) 101 (>89) Glucose 133 H (70-100) mg/dL Calcium 6.1 L* (8.5-10.3) mg/dL Magnesium 1.8 (1.7-2.8) mg/dL Total Bilirubin 1.0 (0.2-1.0) mg/dL AST 28 (10-42) IU/L ALT 20 (10-60) IU/L Alkaline Phosphatase 40 L (42-121) IU/L Total Protein 4.1 L (6.7-8.2) g/dL Albumin 2.3 L (3.2-5.5) g/dL Globulin 1.8 L (2.1-4.2) g/dL Albumin/Globulin Ratio 1.3 (1.0-2.2) - Current Medications Current Medications: Current Medications Generic Name Dose Route Start Last Admin Trade Name Freq PRN Reason Stop Dose Admin Amitriptyline HCl 25 mg 06/04/17 21:00 06/05/17 20:35 Elavil PO 25 mg QPM JOSÉ MIGUEL Administration Potassium Chloride/Dextrose/Sod Cl 1,000 mls @ 125 mls/hr 06/04/17 02:00 08/18 22:22 D5.45ns W/20 Meq Kcl IV 125 mls/hr .Q8H JOSÉ MIGUEL Administration Lorazepam 1 mg 06/05/17 12:00 06/05/17 20:36 Ativan Inj (Vial) IVP 1 mg Q4H JOSÉ MIGUEL Administration Losartan Potassium 50 mg 06/04/17 11:13 06/05/17 09:02 Cozaar PO Not Given DAILY JOSÉ MIGUEL Pantoprazole Sodium 40 mg 06/04/17 07:00 06/05/17 16:08 Protonix IVP 40 mg BIDAC JOSÉ MIGUEL Administration Multivit/Folic Acid/Iron 1 tab 06/05/17 08:00 06/05/17 08:14 Trinatal Rx 1 PO Not Given DAILYWM JOSÉ MIGUEL Prochlorperazine Edisylate 10 mg 06/04/17 01:27 06/04/17 22:59 Compazine Inj IVP 10 mg Q6HR PRN Administration Nausea / Vomiting Sodium Chloride 10 ml 06/04/17 01:27 06/04/17 16:09 Normal Saline Flush 0.9% IVP 10 ml PRN PRN Administration NEEDED PER PROVIDER ORDERS Sodium Chloride 10 ml 06/04/17 09:00 06/05/17 16:08 Normal Saline Flush 0.9% IVP 10 ml 0100,0900,1700 JOSÉ MIGUEL Administration Sucralfate 1 gm 06/04/17 10:00 06/05/17 22:25 Carafate PO 1 gm 0700,1100,1600,2200 JOSÉ MIGUEL Administration - Physical Exam Wound/Incisions: positive: Other (None.) Cardiovascular: positive: Regular rate & rhythm Abdomen: positive: Non-tender, Nml bowel sounds Impression/Plan - Problem List Problem List: D1 s/p EGD with control of bleeding (epinephrine and cautery) Likely variceal due to position at the GE junction. I did not see other varices but the blood was coming from a blood vessel that looked venous and under pressure. The patient flat out says that he will continue drinking alcohol. He asked the nurse whether he could take his Carafate with Vodka. This disease will certainly kill him unless he quits drinking (which seems unlikely given his statements). Considering his relative thrombocytosis, intransigence regarding his alcohol use, and lack of platelets and ready access to blood products here at [facility] should he continue to bleed the safest and correct plan would be to transfer him to a tertiary care center. There is no surgical approach that can be done at this hospital to help this gentleman.
[2017-06-06] MEDS: LORazepam 2 MG/ML VIAL IVP SCH ×3 (00:38→09:21)
[2017-06-06] MEDS: SODIUM CHLORIDE FLUSH 0.9% 10 ML SYRINGE IVP SCH ×3 (01:37→15:42)
[2017-06-06] MEDS: PANTOPRAZOLE 40 MG VIAL IVP SCH ×2 (06:19→15:42)
[2017-06-06] MEDS: SUCRALFATE 1 GM/10 ML UDC PO SCH ×4 (06:19→21:38)
[2017-06-06] MEDS: SODIUM CHLORIDE FLUSH 0.9% 10 ML SYRINGE IVP PRN (06:19)
[2017-06-06] MEDS: D5.45NS W/20 MEQ KCL 1,000 ML IV SCH ×3 (06:19→23:53)
[2017-06-06] MEDS: PRENATAL VITAMIN TABLET PO SCH (09:19)
[2017-06-06] MEDS: LOSARTAN 50 MG TABLET PO SCH (09:21)
[2017-06-06] MEDS ORDERED: LORazepam 2 MG/ML VIAL IVP PRN (10:32)
[2017-06-06 10:54] LABS: BASOPHILS % (AUTO) 0.6 %; EOSINOPHILS # (AUTO) 0.1 10^3/uL (0.0-0.7); EOSINOPHILS % (AUTO) 1.7 %; HGB - HEMOGLOBIN 8.1 g/dL (14.0-18.0); LYMPHOCYTES # (AUTO) 1.9 10^3/uL (1.5-3.5); LYMPHOCYTES % (AUTO) 30.5 %; MEAN CORPUSCULAR HEMOGLOBIN 34.9 pg (27.0-31.0); MEAN CORPUSCULAR HGB CONC 34.7 g/dL (32.0-36.0); MEAN CORPUSCULAR VOLUME 100.6 fL (80.0-94.0); MEAN PLATELET VOLUME 9.7 fL (7.4-11.4); MONOCYTES # (AUTO) 0.5 10^3/uL (0.0-1.0); MONOCYTES % (AUTO) 8.4 %; NEUTROPHILS # (AUTO) 3.6 10^3/uL (1.5-6.6); NEUTROPHILS % (AUTO) 58.8 %; PLT - PLATELET COUNT 73 10^3/uL (130-450); RED BLOOD COUNT 2.32 10^6/uL (4.70-6.10); RED CELL DISTRIBUTION WIDTH 17.9 % (12.0-15.0); WHITE BLOOD COUNT 6.2 x10^3/uL (4.8-10.8)
[2017-06-06 11:09] LABS: CALCIUM 6.4 mg/dL (8.5-10.3); CREATININE 0.7 mg/dL (0.6-1.2)
[2017-06-06] MEDS ORDERED: CALCIUM GLUCONATE 1,000 MG in SODIUM CHLORIDE 0.9% 50 ML IV ONE (16:35)
--- NOTE | 2017-06-06 16:39 | PROVIDER PROGRESS NOTE ---
Subjective - Prog Note Date Prog Note Date: 06/06/17 Prog Note Time: 16:37 - Subjective Pt reports feeling: Improved Subjective: he has no further melena. wants to eat. Hgb staying stable. BP staying stable. Long talk about his alcohol abuse and why. Please refer to ACP under separate note. Current Medications - Current Medications Current Medications: Active Medications Amitriptyline HCl (Elavil) 25 mg PO QPM [facility] Last Admin: 06/05/17 20:35 Dose: 25 mg Potassium Chloride/Dextrose/Sod Cl (D5.45ns W/20 Meq Kcl) 1,000 mls @ 125 mls/ hr IV .Q8H [facility] Last Admin: 06/06/17 14:29 Dose: 125 mls/hr Calcium Gluconate 1,000 mg/ (Sodium Chloride) 60 mls @ 240 mls/hr IV ONCE ONE Stop: 06/06/17 16:49 Lorazepam (Ativan Inj (Vial)) 1 mg IVP Q4H PRN PRN Reason: Agitation Losartan Potassium (Cozaar) 50 mg PO DAILY [facility] Last Admin: 06/06/17 09:21 Dose: Not Given Multi-Ingredient Ointment (Zinc Oxide) 1 applic TOP PRN PRN PRN Reason: Skin Care Pantoprazole Sodium (Protonix) 40 mg IVP BIDAC [facility] Last Admin: 06/06/17 15:42 Dose: 40 mg Multivit/Folic Acid/Iron (Trinatal Rx 1) 1 tab PO DAILYWM [facility] Last Admin: 06/06/17 09:19 Dose: 1 tab Prochlorperazine Edisylate (Compazine Inj) 10 mg IVP Q6HR PRN PRN Reason: Nausea / Vomiting Last Admin: 06/04/17 22:59 Dose: 10 mg Sodium Chloride (Normal Saline Flush 0.9%) 10 ml IVP PRN PRN PRN Reason: NEEDED PER PROVIDER ORDERS Last Admin: 06/06/17 06:19 Dose: 10 ml Sodium Chloride (Normal Saline Flush 0.9%) 10 ml IVP 0100,0900,1700 [facility] Last Admin: 06/06/17 15:42 Dose: 10 ml Sucralfate (Carafate) 1 gm PO 0700,1100,1600,2200 [facility] Last Admin: 03/06/18 15:41 Dose: 1 gm Temazepam (Restoril) 15 mg PO QPM PRN PRN Reason: Insomnia Last Admin: 06/06/17 00:43 Dose: 15 mg Amitriptyline [Elavil] 25 mg PO QPM 07/09/13 Losartan [Cozaar] 50 mg PO DAILY 06/04/17 traZODone [Desyrel] 50 mg PO QPM PRN 06/04/17 Objective - Vital Signs/Intake & Output Reviewed Vital Signs: Yes Vital Signs: Vital Signs Temp Pulse Pulse Pulse Pulse Resp BP 06/06/17 15:26 106 H 16 115/90 H 06/06/17 13:45 152 H 111 H 115 H 06/06/17 13:00 37.0 C 86 16 110/72 BP BP Pulse Ox 06/06/17 15:26 100 06/06/17 13:45 113/82 H 110/72 06/06/17 13:00 Intake & Output: Intake & Output 06/03/17 06/04/17 06/05/17 06/06/17 23:59 23:59 23:59 23:59 Intake Total 6342.033 3900 3183.75 Output Total 300 950 350 Balance 6042.033 2950 2833.75 - Objective General Appearance: positive: No acute distress, Alert, Other (middled aged short statured white male, comfortable. got up out of bed to ambulate to bathroom. no tachycardia, no diaphoriesis.) Eyes Bilateral: positive: PERRL ENT: positive: Pharynx nml Neck: positive: No JVD, Lymphadenopathy (R) (shotty), Lymphadenopathy (L) ( shotty). negative: Stiff neck, Carotid bruit Respiratory: positive: Chest non-tender. negative: Wheezes, Rales, Rhonchi Cardiovascular: positive: Regular rate & rhythm. negative: Systolic murmur, Gallop/S4, Friction rub Abdomen: positive: Non-tender, No organomegaly, Nml bowel sounds, No distention , Other (no fluid wave) Skin: positive: Warm, Dry Extremities: positive: Full ROM, No pedal edema Neurologic/Psychiatric: positive: Oriented x3, CN's nml (2-12), Motor nml (no tremors, no asterixis) - Lab Results Fish Bones: 06/06/17 10:41 06/06/17 10:41 Other Labs: Lab Results x24hrs 06/06/17 06/06/17 Range/Units 10:41 10:41 WBC 6.2 (4.8-10.8) x10^3/uL RBC 2.32 L (4.70-6.10) 10^6/uL Hgb 8.1 L (14.0-18.0) g/dL Hct 23.3 L (42.0-52.0) % MCV 100.6 H (80.0-94.0) fL MCH 34.9 H (27.0-31.0) pg MCHC 34.7 (32.0-36.0) g/dL RDW 17.9 H (12.0-15.0) % Plt Count 73 L (130-450) 10^3/uL MPV 9.7 (7.4-11.4) fL Neut # 3.6 (1.5-6.6) 10^3/uL Lymph # 1.9 (1.5-3.5) 10^3/uL [place] # 0.5 (0.0-1.0) 10^3/uL Eos # 0.1 (0.0-0.7) 10^3/uL Baso # 0.0 (0.0-0.1) 10^3/uL Absolute Nucleated RBC 0.00 x10^3/uL Nucleated RBC % 0.0 /100WBC Sodium 135 (135-145) mmol/L Potassium 3.5 (3.5-5.0) mmol/L Chloride 111 (101-111) mmol/L Carbon Dioxide 21 (21-32) mmol/L Anion Gap 3.0 L (6-13) BUN 13 (6-20) mg/dL Creatinine 0.7 (0.6-1.2) mg/dL Estimated GFR (MDRD) 117 (>89) Glucose 98 (70-100) mg/dL Calcium 6.4 L* (8.5-10.3) mg/dL Assessment/Plan - Problem List (1) Bleeding esophageal varix Impression: No further signs of bleeding for >48 hours. Will change diet from clear liquids to regular diet. Continue stress ulcer prophylaxis IV for today and change to po in am Transfer to floor. I stable again today, plan for dc in am. On Carafate. Add propranolol. will speak to his PCP at discharge to get him referred for esophageal banding or ligation. (2) Anemia due to acute blood loss Assessment/Plan: s/p 2 units of PRBCs. Watching H/H twice a day: yesterday 9 and 8.1 grams This am 8.1 grams. (3) Alcohol withdrawal delirium, acute, hyperactive Assessment/Plan: Pt on Ativan prn withdrawl and CIWA protocol. Doing well. Not getting more severe. Transfer to floor from ICU. Plan for dc in am. (4) Alcohol abuse Assessment/Plan: Elevated AST and bili, also MCV and has pancytopenia. Alcohol abstinence advised, but he told his RN he will resume drinking after DCh. See ACP discussion. Qualifiers: Esophageal varices type: secondary Qualified Code(s): I85.11 - Secondary esophageal varices with bleeding
--- NOTE | 2017-06-06 17:04 | ADVANCE CARE PLANNING NOTE ---
Advance Care Planning - Date/Time Date: 06/06/17 Time: 17:01 - Purpose of encounter Text: to understand why he is not going to stop drinking in the face of potentially lethal esophageal varices. - Parties in attendance Parties in attendance: patient and hospitalist - Decisional capacity Decisional capacity of: patient is intact. He is alert, oriented. In spite of alchol withdrawal risk and on CIWA, he is stable BP, pulse, and alert. - Subjective/Patient's story Subjective/Patient's story: He feels as if had a good life until his . Up until then he was employed with various jobs. 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 He had the best job he ever had in his life and was very happy working for a local [employer]. But his unexpectedly 12 years ago. And he started drinking heavily. With one of his drinking episodes he fell because he tripped while intoxicated. His head on the corner of a table. Remembers getting up, but stumbling again and hitting his head even harder the second time around. He lay unconscious on the floor for 3-4 days. By the time he was found he said that he was in liver failure, kidney failure, had significant cognitive deficits, and was not expected to live. Unfortunately, he states, he lived. He has slowly regained use of his arms, and can read and write. But his legs are in constant agonizing pain. By the time he gets back in bed at night, he has to massage them from the calf down to the feet for an hour.. Or he has to massage them before he gets out of bed to even begin his daily activities. He lives with a good friend who cooks for them, drives for him. But he is not able to ambulate easily. The drinking is because he is depressed, and it helps him control his leg pain. He feels like he has nothing to live for. He doesn't like to read, garden, and has no outside interests. He clearly states he is not suicidal. He has no plans on killing himself. He doesn't necessarily want to right now, but would not object if he did not wake up one day and had a natural . - Objective/Medical story Objective/Medical Story: Mr. Mark Perez is a 56-year-old gentleman with a history of alcoholism who was brought into the emergency department by EMS earlier this evening. EMS reports that they saw the patient vomited blood and there also reports of possible bleeding per rectum. He was heavily intoxicated and was in the same condition when found in the field by EMS. He was unable to tell the admitting MD why he is in the emergency department and is an extremely poor historian at this time. History - Past Medical History Cardiovascular: reports: Hypertension Respiratory: reports: None Neuro: reports: Head injury, Peripheral neuropathy, Fainting Endocrine/Autoimmune: reports: None GI: reports: GERD : reports: None HEENT: reports: Chronic vision loss Psych: reports: Post traumatic stress disorder Musculoskeletal: reports: Chronic back pain, Other Derm: reports: None MRSA Hx?: No - Past Surgical History General: reports: Other Derm: reports: Skin grafts Once he was in the ICU, he was resuscitated with IVF, 2 units of blood, temporary octreotide, and stablized. He has been stable for 48 hours. He did have an EGD w injection. No black stool or melena for 48 hours. He states that he will continue drinking in spite of the risk of more or worsening varices, risk of worsening cirrhosis, hepatic encephalopathy. - Goals of Care Goals of care determinations: We have determined that he is not suicidal and has no desire to , but clearly also feels there is nothing in life worth staying around for I have asked him to ponder the situation and give us an idea of how aggressive he wants us to be in the face of contined self abuse. We cannot keep on fixing a problem and have him come back with recurrence because he didn't take care of himself. I have asked him to give us an idea of what he thinks is worthwhile to live for and now much disability he is willing to live with if his disease progresses. Please let us know so that we can help him help us make the right treatment decisions. - Plan Plan: He wants to be DNR. He wants to be cremated. All of his finances have been taken care of thru a friend and the friend has access to his bank account. Think out his future goals and let us know what they are. Refer to GI for ligation or banding of varix. - Code Status Code Status: Do Not Attempt Resuscitation - Time Spent on Advance Care Planning Time spent on advance care plannin minutes.
[2017-06-06] MEDS: AMITRIPTYLINE 25 MG TABLET PO SCH (21:38)
[2017-06-07] MEDS: SODIUM CHLORIDE FLUSH 0.9% 10 ML SYRINGE IVP SCH ×2 (03:19→10:53)
[2017-06-07 04:40] LABS: BASOPHILS % (AUTO) 0.5 %; EOSINOPHILS # (AUTO) 0.1 10^3/uL (0.0-0.7); EOSINOPHILS % (AUTO) 1.8 %; HGB - HEMOGLOBIN 7.8 g/dL (14.0-18.0); LYMPHOCYTES # (AUTO) 2.2 10^3/uL (1.5-3.5); LYMPHOCYTES % (AUTO) 28.4 %; MEAN CORPUSCULAR HEMOGLOBIN 35.1 pg (27.0-31.0); MEAN CORPUSCULAR HGB CONC 35.4 g/dL (32.0-36.0); MEAN PLATELET VOLUME 9.4 fL (7.4-11.4); MONOCYTES # (AUTO) 0.6 10^3/uL (0.0-1.0); NEUTROPHILS # (AUTO) 4.7 10^3/uL (1.5-6.6); NEUTROPHILS % (AUTO) 61.3 %; PLT - PLATELET COUNT 84 10^3/uL (130-450); RED BLOOD COUNT 2.23 10^6/uL (4.70-6.10); RED CELL DISTRIBUTION WIDTH 17.2 % (12.0-15.0); WHITE BLOOD COUNT 7.6 x10^3/uL (4.8-10.8)
[2017-06-07 04:48] LABS: ALBUMIN 2.4 g/dL (3.2-5.5); ALBUMIN/GLOBULIN RATIO 1.3 (1.0-2.2); BILIRUBIN,TOTAL 0.7 mg/dL (0.2-1.0); CALCIUM 7.1 mg/dL (8.5-10.3); CREATININE 0.7 mg/dL (0.6-1.2); TOTAL PROTEIN 4.3 g/dL (6.7-8.2)
[2017-06-07] MEDS: SUCRALFATE 1 GM/10 ML UDC PO SCH ×2 (06:24→10:56)
[2017-06-07] MEDS: SODIUM CHLORIDE FLUSH 0.9% 10 ML SYRINGE IVP PRN (06:25)
[2017-06-07] MEDS: PANTOPRAZOLE 40 MG VIAL IVP SCH (06:25)
[2017-06-07] MEDS ORDERED: POTASSIUM CHLORIDE 20 MEQ TABLET PO SCH (07:32)
[2017-06-07] MEDS: PRENATAL VITAMIN TABLET PO SCH (07:38)
[2017-06-07] MEDS: LOSARTAN 50 MG TABLET PO SCH (07:39)
[2017-06-07] MEDS: PROPRANOLOL 10 MG TABLET PO SCH ×2 (07:46→10:57)
[2017-06-07] MEDS ORDERED: PANTOPRAZOLE 40 MG TABLET PO SCH (08:00)
[2017-06-07] MEDS ORDERED: PROPRANOLOL 10 MG TABLET PO SCH (08:00)
[2017-06-07 12:25] LABS: HGB - HEMOGLOBIN 9.1 g/dL (14.0-18.0)
--- NOTE | 2017-06-07 12:58 | Discharge Plan ---
Discharge Plan Disposition: 01 Home, Self Care Condition: Fair Prescriptions: Folic Acid 1 mg PO DAILY #100 tablet Pantoprazole [Protonix] 40 mg PO QDAC #30 tablet Propranolol [Inderal] 10 mg PO BID #60 tablet Thiamine [Vitamin B-1] 100 mg PO DAILY #100 tablet Diet: Regular Activity Restrictions: Activity as Tolerated Shower Restrictions: No Driving Restrictions: No Additional Instructions or Follow Up instructions: You were admitted to the hospital because of acute alcohol intoxication associated with an episode of a large amount of vomiting of blood. When you first came in your hemoglobin was 16 g. That is a normal amount. You then deteriorated with low blood pressure and a drop in your hemoglobin to 10 g. You required 2 units of blood to prevent anemia. You underwent an endoscopy with the surgeon and we found you to have a varicose vein of your esophagus, most likely from cirrhosis of the liver due to alcoholism. That was injected to help shrink it and stop bleeding. We initially thought that we were going to have to transfer you to another hospital for a second endoscopy with ligation of the esophagus varicose vein. But your blood studies stabilized and your hemoglobin on the day of discharge is 9.1. I am sending you home on 2 new pills call propranolol and Protonix. Propranolol lowers the blood pressure in the the liver venous system and reduces your risk of bleeding from the esophagus varicose vein. Protonix will reduce the amount of acid that the stomach makes. You have decided to stop drinking completely. I have explained that you most likely have severe cirrhosis with portal hypertension and esophagus varicose veins. If you can stop drinking early enough, some of your liver damage may regress. Do not take nonsteroidal drugs such as aspirin, Aleve, ibuprofen. You may take Tylenol [id number] sparingly and never take more than 3000 mg a day. I would like you to take thiamine and folate [id number] to help with the anemia. While you may eat acidic foods such as tomatoes, citrus, caffeine, you can do so sparingly. Please see your primary care provider Analilia Maradiaga. I would also like her to refer you to an stack attendant because you will need a follow-up endoscopy with ligation or banding of the esophagus varicose vein. You will also need further studies like an ultrasound of your abdomen to see how much your liver is affected. If you have further episodes of black or purple stools or vomitting of blood, please come back to the emergency room. At that time, let the emergency room doctors know that you will need to be transferred since we cannot do the specialty care you need here. No Smoking: If you smoke, Please STOP! Call for help. Follow-up with: Analilia Maradiaga ARNP [Primary Care Provider] -
[2017-06-07 13:05] VITALS: BP 118/83
--- NOTE | 2017-06-13 23:00 | DISCHARGE SUMMARY ---
Physician: Fernanda De León MD DATE OF ADMISSION: 06/04/2017 DATE OF DISCHARGE: 06/07/2017 DISCHARGE DIAGNOSES 1. Esophageal varices with bleeding. 2. Acute posthemorrhagic anemia. 3. Alcohol dependence with withdrawal delirium. 4. Alcohol abuse, uncomplicated. 5. Hypertension. 6. Hyperlipidemia. DISCHARGE MEDICATIONS 1. Elavil 25 mg p.o. q.p.m. 2. Folic acid 1 mg daily. 3. Losartan 50 mg daily. 4. Protonix 40 mg daily. 5. Inderal 10 mg p.o. b.i.d. 6. Thiamine 100 mg p.o. daily. 7. Trazodone 50 mg p.o. q.p.m. PRINCIPAL PROCEDURE 1. Transfusion of 2 units of packed cells. 2. Esophagogastroduodenoscopy with control of bleeding by injection of varices. The duodenum had no abnormalities. There was bleeding from a source above the GE junction. Bipolar cautery probe was applied to this site. It was also injected twice, and then 4 more cauteries. The stomach was normal. Significant blood in the stomach. There was some esophagitis as well as the bleeding source of his GE junction. It was not clear if the vessel was a varix or ulcerative bleeding. That is what was injected and cauterized. HOSPITAL COURSE: The patient is a 57-year-old man who has a history of alcoholism. He has been drinking steadily for over 12 years since the of his . He was found outside in a field and EMS was called. He was very intoxicated and when they got in the ambulance, he had emesis of blood. When the patient came to the emergency room, he was unable to say why he was in the emergency department and a very poor historian. I do not know where the history of him being an alcoholic was obtained. However, the patient did confirm it later on in his stay. He had a past medical history that was stated of hypertension, peripheral neuropathy, head injury, reflux disease, chronic vision loss, chronic back pain, and PTSD. His temperature was 36.9, pulse of 109, respirations 21, blood pressure 107/79. He was lethargic, intoxicated, with a nontender abdomen. Normal bowel sounds. Hemoglobin was 16.4, platelets 121. The patient was brought in as upper GI bleed in a patient who has alcoholism, differential diagnosis could include alcoholic gastritis, ulcerative bleeding, versus esophageal varices. Hemoglobin was monitored and he dropped to 10 approximately 10 hours later. He was transfused 2 units and continued to leak down to 8.1 and finally bottomed out at 7.8 and rebounded to 9.1. He did not need any more than those 2 units. EGD was done and showed the above results of possible variceal bleeding at the GE junction. Patient initially had problems with alcohol withdrawal, tremulousness and was in ICU with CIWA protocol. Over the next 2 days, he gradually cleared. He had 1 melenic stool, 2 days before discharge, but again hemodynamically stable. He was eventually transitioned to all p.o. medication including a proton pump inhibitor, selective beta janie. Some time was spent with the patient trying to establish why he drinks, and does not understand the natural progression of what is happening. He was very honest and stating that he found no reason to live ever since his had . That is pretty much when he started heavily drinking. With advanced care planning talk, he initially said that he wanted to be DNR, and he would consider whether or not he wanted to be treated down the road. By the day of discharge, the patient was stating that he had listened carefully to my questions and into looking into his life, his relationship with friends, that he did have people in his life that he wanted to be with, that life may actually have more meaning that he realized and although he still stated he wanted to be DNR, he did want treatment for his alcoholism, transfusions when needed, and referral to GI specialist for ongoing evaluation, diagnosis, and treatment. He was treated with [facility] protocol, which included banana bags. He was transitioned to oral vitamins. On the day of discharge, his morning hemoglobin was 7.8. It had drifted down from the 10 after which he was transfused. I had actually spoken to and was on the phone with them. Considering transferring him in case he was still leaking and needed esophageal variceal banding or ligation, but repeat CBC showed a hemoglobin of 9.1. At that point in time, he was walking in the room, blood pressure was stable in the 116s-125s. Not tachycardic. Eating a regular diet. Oxygenating well on room air, alert and oriented. No diaphoresis and he wanted to go home. After speaking to grain origination specialist on the phone, they also felt that it would be reasonable not to send him home. However, the patient has been strongly encouraged to follow up with his primary care provider, Analilia Deleon. From there, I have done a warm sign out to her, and I have asked that he be referred to Gastroenterology to get a complete workup for his cirrhosis and esophageal variceal bleeding. While most likely it is from alcoholism, other workup should probably consider. It is not clear how bad his cirrhosis is and when we should put him on lactulose. Does he have varices that need to be ligated? The patient was discharged in stable condition with numerous instructions and questions answered for he and his best friend/roommate. Temperature is 37.4, pulse 77, blood pressure is 118/83, respirations 17, and 100% on room air. He is a stocky, moderately overweight gentleman with a pendulous belly, but ambulating in the room without tremulousness, or ataxia. Skin is now warm and dry. Neck has shotty adenopathy, lungs are completely clear, and he has a regular rate and rhythm. No murmurs, rubs or gallops. No pedal edema. Greater than 30 minutes was spent in coordinating discharge. TD: 06/13/2017 22:58
== END 2017-06-07 13:39 | disposition home or self-care (01) | DRG 369 ==
LOC: EDUNIT# → ED 23:49 → SUPCPDRO 23:49 → MS2 06-04 01:27 → ICU 06-04 18:26
PROVIDERS: ADMIT Hospitalist; ATTEND Specialist
PROC: 30233N1 Transfusion of Nonautologous Red Blood Cells into Peripheral Vein, Percutaneous Approach (ICD-10-PCS; 2017-06-04)
PROC: 0W3P8ZZ Control Bleeding in Gastrointestinal Tract, Via Natural or Artificial Opening Endoscopic (ICD-10-PCS; principal; 2017-06-04 17:30)
DX: I85.01 Esophageal varices with bleeding (principal); K92.2 Gastrointestinal hemorrhage, unspecified; D62 Acute posthemorrhagic anemia; F10.231 Alcohol dependence with withdrawal delirium; D61.818 Other pancytopenia; Y90.0 Blood alcohol level of less than 20 mg/100 ml; F17.200 Nicotine dependence, unspecified, uncomplicated; I10 Essential (primary) hypertension; E78.5 Hyperlipidemia, unspecified; G62.9 Polyneuropathy, unspecified; K21.9 Gastro-esophageal reflux disease without esophagitis; F43.10 Post-traumatic stress disorder, unspecified; G89.29 Other chronic pain; M54.9 Dorsalgia, unspecified; H54.7 Unspecified visual loss; Z66 Do not resuscitate; K70.30 Alcoholic cirrhosis of liver without ascites; F17.210 Nicotine dependence, cigarettes, uncomplicated
CPT/HCPCS: 36415; 71045; 80048; 80053; 80320; 83690; 83735; 84100; 84484; 85014; 85018; 85025; 85610; 85730; 86850; 86900; 86901; 86920; 87150; 93005; 96361; 96365; 96368; 96375; 96376; 99284; 99291

== ENCOUNTER 2017-06-09 09:16 | Outpatient (CLI) | payer MEDICARE ==
[2017-06-09 13:08] LABS: BASOPHILS % (AUTO) 0.6 %; EOSINOPHILS # (AUTO) 0.1 10^3/uL (0.0-0.7); EOSINOPHILS % (AUTO) 1.5 %; LYMPHOCYTES # (AUTO) 1.8 10^3/uL (1.5-3.5); LYMPHOCYTES % (AUTO) 22.8 %; MEAN CORPUSCULAR HEMOGLOBIN 35.5 pg (27.0-31.0); MEAN CORPUSCULAR HGB CONC 34.8 g/dL (32.0-36.0); MEAN CORPUSCULAR VOLUME 101.9 fL (80.0-94.0); MEAN PLATELET VOLUME 10.6 fL (7.4-11.4); MONOCYTES # (AUTO) 1.1 10^3/uL (0.0-1.0); MONOCYTES % (AUTO) 14.3 %; NEUTROPHILS # (AUTO) 4.8 10^3/uL (1.5-6.6); NEUTROPHILS % (AUTO) 60.8 %; PLT - PLATELET COUNT 166 10^3/uL (130-450); RED BLOOD COUNT 2.81 10^6/uL (4.70-6.10); RED CELL DISTRIBUTION WIDTH 18.1 % (12.0-15.0); WHITE BLOOD COUNT 7.8 x10^3/uL (4.8-10.8)
== END 2017-06-09 09:17 | disposition home or self-care (01) ==
LOC: LAB.N 09:16
PROVIDERS: ATTEND Nurse Practitioner Gerontology
DX: D62 Acute posthemorrhagic anemia (principal)
CPT/HCPCS: 36415; 85025

== ENCOUNTER 2017-07-21 08:59 | Outpatient (CLI) | payer MEDICARE ==
--- NOTE | 2017-07-21 14:55 | Ultrasound Report ---
LIMITED ABDOMINAL ULTRASOUND: 07/21/2017 INDICATION: Cirrhosis. FINDINGS: The liver measures 14.4 cm. Hepatic echotexture is heterogeneous. No focal parenchymal lesion or intrahepatic biliary dilatation is present. The common bile duct measures 5 mm. The gallbladder is normal. The right kidney measures 10.7 cm, and demonstrates no hydronephrosis. No free fluid is present. IMPRESSION: HETEROGENEOUS APPEARANCE OF THE LIVER, WITHOUT EVIDENCE OF FOCAL LESION OR BILIARY OBSTRUCTION. TD: 07/21/2017 14:53
== END 2017-07-21 09:00 | disposition home or self-care (01) ==
LOC: DI 08:59
PROVIDERS: ATTEND Physician Assistant
DX: K74.60 Unspecified cirrhosis of liver (principal)
CPT/HCPCS: 76705

== ENCOUNTER 2017-10-09 08:27 | Outpatient (CLI) | payer MEDICARE ==
[2017-10-09 13:06] LABS: BASOPHILS # (AUTO) 0.1 10^3/uL (0.0-0.1); BASOPHILS % (AUTO) 1.3 %; EOSINOPHILS # (AUTO) 0.2 10^3/uL (0.0-0.7); EOSINOPHILS % (AUTO) 2.6 %; HGB - HEMOGLOBIN 16.8 g/dL (14.0-18.0); LYMPHOCYTES # (AUTO) 2.7 10^3/uL (1.5-3.5); LYMPHOCYTES % (AUTO) 30.6 %; MEAN CORPUSCULAR HEMOGLOBIN 30.1 pg (27.0-31.0); MEAN CORPUSCULAR HGB CONC 33.1 g/dL (32.0-36.0); MEAN CORPUSCULAR VOLUME 90.9 fL (80.0-94.0); MEAN PLATELET VOLUME 10.6 fL (7.4-11.4); MONOCYTES # (AUTO) 0.6 10^3/uL (0.0-1.0); MONOCYTES % (AUTO) 7.1 %; NEUTROPHILS # (AUTO) 5.1 10^3/uL (1.5-6.6); NEUTROPHILS % (AUTO) 58.4 %; PLT - PLATELET COUNT 204 10^3/uL (130-450); RED BLOOD COUNT 5.57 10^6/uL (4.70-6.10); WHITE BLOOD COUNT 8.7 x10^3/uL (4.8-10.8)
[2017-10-09 13:41] LABS: ALBUMIN 3.8 g/dL (3.2-5.5); ALKALINE PHOSPHATASE 69 IU/L (42-121); ALT ALANINE AMINOTRANSFERASE 14 IU/L (10-60); AST ASPARTATE AMINOTRANSFERASE 21 IU/L (10-42); BILIRUBIN,TOTAL 0.7 mg/dL (0.2-1.0); BUN - BLOOD UREA NITROGEN 9 mg/dL (6-20); CALCIUM 9.7 mg/dL (8.5-10.3); CARBON DIOXIDE - CO2 26 mmol/L (21-32); CHLORIDE 102 mmol/L (101-111); CHOL/HDL RATIO 6.9 (<5.0); CHOLESTEROL 248 mg/dL; CREATININE 0.8 mg/dL (0.6-1.2); GFR - MDRD 100 (>89); GLUCOSE 98 mg/dL (70-100); HDL CHOLESTEROL 36 mg/dL; LDL CHOLESTEROL,CALCULATED 185 mg/dL; LDL/HDL RATIO 5.1 (<3.6); SODIUM 135 mmol/L (135-145); TOTAL PROTEIN 7.5 g/dL (6.7-8.2); VLDL CHOLESTEROL 27 mg/dL
== END 2017-10-09 08:28 ==
LOC: LAB.N 08:27
PROVIDERS: ATTEND Nurse Practitioner Gerontology
DX: I10 Essential (primary) hypertension (principal); E78.5 Hyperlipidemia, unspecified
CPT/HCPCS: 36415; 80053; 80061; 83721; 85025

== ENCOUNTER 2018-05-21 08:00 | Outpatient (CLI) | payer MEDICARE ==
[2018-05-21 13:01] LABS: ALBUMIN 4.1 g/dL (3.2-5.5); ALBUMIN/GLOBULIN RATIO 1.2 (1.0-2.2); ALKALINE PHOSPHATASE 82 IU/L (42-121); ALT ALANINE AMINOTRANSFERASE 17 IU/L (10-60); AST ASPARTATE AMINOTRANSFERASE 22 IU/L (10-42); BUN - BLOOD UREA NITROGEN 11 mg/dL (6-20); CALCIUM 9.4 mg/dL (8.5-10.3); CARBON DIOXIDE - CO2 27 mmol/L (21-32); CHLORIDE 102 mmol/L (101-111); CHOL/HDL RATIO 5.9 (<5.0); CHOLESTEROL 207 mg/dL; CREATININE 0.8 mg/dL (0.6-1.2); GFR - MDRD 100 (>89); GLUCOSE 85 mg/dL (70-100); HDL CHOLESTEROL 35 mg/dL; LDL CHOLESTEROL,CALCULATED 141 mg/dL; SODIUM 138 mmol/L (135-145); TOTAL PROTEIN 7.6 g/dL (6.7-8.2); VLDL CHOLESTEROL 31 mg/dL
== END 2018-05-21 23:59 | disposition home or self-care (01) ==
LOC: LAB.N 08:00
PROVIDERS: ATTEND Nurse Practitioner Gerontology
DX: E78.5 Hyperlipidemia, unspecified (principal); Z79.899 Other long term (current) drug therapy
CPT/HCPCS: 36415; 80053; 80061; 83721

== ENCOUNTER 2018-07-12 14:57 | Outpatient (CLI) | payer MEDICARE | END 2018-07-12 23:59 | disposition home or self-care (01) | LOC: RT.N 14:57 | PROVIDERS: ATTEND Nurse Practitioner Gerontology | DX: I10 Essential (primary) hypertension (principal) ==

== ENCOUNTER 2018-07-13 08:00 | Outpatient (CLI) | payer MEDICARE ==
[2018-07-13 12:39] LABS: BASOPHILS % (AUTO) 0.5 %; EOSINOPHILS # (AUTO) 0.2 10^3/uL (0.0-0.7); EOSINOPHILS % (AUTO) 1.9 %; HGB - HEMOGLOBIN 18.6 g/dL (14.0-18.0); LYMPHOCYTES # (AUTO) 2.7 10^3/uL (1.5-3.5); LYMPHOCYTES % (AUTO) 31.1 %; MEAN CORPUSCULAR HEMOGLOBIN 32.5 pg (27.0-31.0); MEAN CORPUSCULAR HGB CONC 33.5 g/dL (32.0-36.0); MEAN CORPUSCULAR VOLUME 96.9 fL (80.0-94.0); MEAN PLATELET VOLUME 10.4 fL (7.4-11.4); MONOCYTES # (AUTO) 0.6 10^3/uL (0.0-1.0); MONOCYTES % (AUTO) 6.5 %; NEUTROPHILS # (AUTO) 5.2 10^3/uL (1.5-6.6); PLT - PLATELET COUNT 179 10^3/uL (130-450); RED BLOOD COUNT 5.72 10^6/uL (4.70-6.10); RED CELL DISTRIBUTION WIDTH 13.5 % (12.0-15.0); WHITE BLOOD COUNT 8.7 x10^3/uL (4.8-10.8)
[2018-07-13 13:06] LABS: ALBUMIN 4.1 g/dL (3.2-5.5); ALBUMIN/GLOBULIN RATIO 1.3 (1.0-2.2); BILIRUBIN,TOTAL 0.9 mg/dL (0.2-1.0); CALCIUM 9.2 mg/dL (8.5-10.3); CREATININE 0.8 mg/dL (0.6-1.2); TOTAL PROTEIN 7.2 g/dL (6.7-8.2)
== END 2018-07-13 23:59 | disposition home or self-care (01) ==
LOC: LAB.N 08:00
PROVIDERS: ATTEND Nurse Practitioner Gerontology
DX: Z01.812 Encounter for preprocedural laboratory examination (principal); I10 Essential (primary) hypertension; F10.20 Alcohol dependence, uncomplicated; E78.5 Hyperlipidemia, unspecified
CPT/HCPCS: 36415; 80053; 85025; 85610; 85730

== ENCOUNTER 2018-08-07 06:24 | Outpatient (CLI) | payer MEDICARE | END 2018-08-07 06:25 | disposition critical access hospital (66) | LOC: EMS 06:24 | PROVIDERS: ATTEND Surgery | DX: R06.02 Shortness of breath (principal); R21 Rash and other nonspecific skin eruption; R55 Syncope and collapse; R22.0 Localized swelling, mass and lump, head | CPT/HCPCS: A0425; A0427 ==

== ENCOUNTER 2018-08-07 06:45 | Emergency (ER) | payer MEDICARE ==
[2018-08-07] MEDS ORDERED: DEXAMETHASONE 10 MG/ML VIAL IVP STA (07:15)
[2018-08-07] MEDS ORDERED: diphenhydrAMINE INJ 50 MG/ML VIAL IVP STA (07:16)
[2018-08-07] MEDS ORDERED: SODIUM CHLORIDE 0.9% 1,000 ML IV ONE ×2 (07:16)
--- NOTE | 2018-08-07 07:20 | ED Physician Documentation ---
History of Present Illness - Stated complaint Stated Complaint: ALLERGIC REACTION - Chief complaint Chief Complaint: Allergic Rx - History obtained from History obtained from: Patient, EMS - History of Present Illness Timing: Today Pain level max: 7 Pain level now: 5 Improved by: epi Worsened by: nothing - Additonal information Additional information: 58 year old male s/p tongue and neck surgery for tongue mass at [facility] on 08/03. discharged home yesterday. States woke up with a diffuse rash today. EMS gave IM epi 0.3mg x 1 with resolution of rash. Denies dyspnea now, but states he does not feel well. He is not normally on oxygen. 88% on RA with EMS. Patient took several new medications last night. Dr. Cano is his surgeon. Review of Systems Ten Systems: 10 systems reviewed and negative Constitutional: denies: Fever, Chills Ears: denies: Ear pain Nose: denies: Rhinorrhea / runny nose, Congestion Throat: reports: Sore throat Cardiac: denies: Chest pain / pressure, Palpitations Respiratory: denies: Cough, Hemoptysis, Wheezing GI: denies: Nausea, Vomiting Skin: denies: Rash Musculoskeletal: denies: Neck pain, Back pain Neurologic: denies: Headache PD PAST MEDICAL HISTORY - Past Medical History Past Medical History: Yes Cardiovascular: Hypertension Respiratory: None Endocrine/Autoimmune: None GI: GERD : None HEENT: Chronic vision loss Psych: Post traumatic stress disorder Musculoskeletal: Chronic back pain, Other Derm: None - Past Surgical History Past Surgical History: Yes General: Other HEENT: Tonsil/Adenoidectomy Derm: Skin grafts - Present Medications Home Medications: Ambulatory Orders Medication Instructions Recorded Confirmed Amitriptyline [Elavil] 25 mg PO QPM 07/09/13 08/07/18 Losartan [Cozaar] 50 mg PO DAILY 06/04/17 08/07/18 Folic Acid 1 mg PO DAILY #100 tablet 06/07/17 08/07/18 Pantoprazole [Protonix] 40 mg PO QDAC #30 tablet 06/07/17 08/07/18 Propranolol [Inderal] 10 mg PO BID #60 tablet 06/07/17 08/07/18 Thiamine [Vitamin B-1] 100 mg PO DAILY #100 tablet 06/07/17 08/07/18 Acetaminophen 325 mg PO Q4HR PRN 08/07/18 08/07/18 Chlorhexidine Gluconate 15 ml PO BID 08/07/18 08/07/18 Diphenhydramine HCl [Allergy 12.5 mg PO Q6HR PRN 08/07/18 08/07/18 Relief] Lovastatin 10 mg PO DAILY PM 08/07/18 08/07/18 Ondansetron Odt [Zofran Odt] 4 mg PO PRN PRN 08/07/18 08/07/18 Polyethylene Glycol 3350 [Miralax] 17 gm PO PRN PRN 08/07/18 08/07/18 methylPREDNISolone 4 mg PO DAILY 08/07/18 08/07/18 [Methylprednisolone] oxyCODONE [Roxicodone] 5 mg PO Q4HR PRN 08/07/18 08/07/18 - Allergies Allergies/Adverse Reactions: Allergies Allergy/AdvReac Type Severity Reaction Status Date / Time ibuprofen AdvReac Severe Dizziness Verified 08/07/18 06:50 apple AdvReac Hives Verified 08/07/18 06:50 - Social History Does the pt smoke?: Yes Smoking Status: Current every day smoker Does the pt drink ETOH?: Yes Does the pt have substance abuse?: No - Immunizations Immunizations are current?: Yes - POLST Patient has POLST: No POLST Status: Full Code PD ED PE NORMAL - Vitals Vital signs reviewed: Yes - General General: Alert and oriented X 3, No acute distress - HEENT HEENT: Moist mucous membranes, Other (diffusely swollen tongue and posterior oropharynx.) - Neck Neck: Supple, no meningeal sign - Cardiac Cardiac: RRR - Respiratory Respiratory: No respiratory distress, Clear bilaterally - Derm Derm: Warm and dry, No rash - Neuro Neuro: Alert and oriented X 3 - Psych Psych: Normal mood, Normal affect Results - Vitals Vitals: Vital Signs - 24 hr 08/07/18 08/07/18 08/07/18 06:46 06:49 06:56 Temperature 36.3 C L Heart Rate 80 73 Respiratory 24 16 Rate Blood Pressure 153/85 H 153/85 H O2 Saturation 93 88 L 91 L 08/07/18 08/07/18 08/07/18 07:47 08:02 08:30 Temperature 36.6 C Heart Rate 68 71 65 Respiratory 15 15 14 Rate Blood Pressure 115/93 H 135/85 H 136/74 H O2 Saturation 96 96 96 08/07/18 08/07/18 08/07/18 09:00 09:30 10:01 Temperature 36.7 C Heart Rate 69 71 77 Respiratory 18 19 17 Rate Blood Pressure 136/92 H 138/81 H 142/92 H O2 Saturation 95 93 94 08/07/18 08/07/18 08/07/18 10:40 11:01 11:30 Temperature Heart Rate 76 68 61 Respiratory 12 20 13 Rate Blood Pressure 152/98 H 145/89 H 132/91 H O2 Saturation 92 93 94 08/07/18 12:05 Temperature Heart Rate 90 Respiratory 20 Rate Blood Pressure 145/86 H O2 Saturation 95 Oxygen O2 Source Room air Oxygen Flow Rate 4 - Labs Labs: Laboratory Tests 08/07/18 08/07/18 07:26 07:26 WBC 13.3 H RBC 5.03 Hgb 16.4 Hct 47.9 MCV 95.2 H MCH 32.6 H MCHC 34.3 RDW 13.2 Plt Count 145 MPV 9.6 Neut # (Auto) 11.6 H Lymph # (Auto) 1.2 L Stafford # (Auto) 0.4 Eos # (Auto) 0.0 Baso # (Auto) 0.0 Absolute Nucleated RBC 0.00 Nucleated RBC % 0.0 Sodium 135 Potassium 3.7 Chloride 97 L Carbon Dioxide 25 Anion Gap 13.0 BUN 9 Creatinine 0.6 Estimated GFR (MDRD) 139 Glucose 142 H Calcium 8.7 Total Bilirubin 1.5 H AST 22 ALT 20 Alkaline Phosphatase 47 Total Protein 6.5 L Albumin 3.4 Globulin 3.1 Albumin/Globulin Ratio 1.1 Lipase 22 PD MEDICAL DECISION MAKING - ED course Complexity details: reviewed results, re-evaluated patient, considered differential, d/w patient, d/w vendor management consultant ED course: 58-year-old male with an apparent allergic reaction, unclear etiology, But likely 1 of his new medications. He was given epinephrine by EMS as well as Benadryl. Given dexamethasone here. His hypoxia is gradually improving, but still hypoxic, Dr. Cano his surgeon was consulted.. Discussed the case with Dr. Cano [phone] and recommends Solu-Medrol as well as racemic epinephrine and will observe him here. If he is still fails to improve we will transfer down to [facility]. Patient gradually improved. No recurrent symptoms. Tolerating p.o. without difficulty. No further hypoxia. He has had all of these medications that he is currently taken before. Unclear what the allergic shot was 2. We will have him follow-up with his doctor closely. He will be with his roommates today. Patient counseled regarding signs and symptoms for which I believe and urgent re-evaluation would be necessary. Patient with good understanding of and agreem ent to plan and is comfortable going home at this time This document was made in part using voice recognition software. While efforts are made to proofread this document, sound alike and grammatical errors may occur. Departure - Departure Disposition: 01 Home, Self Care Clinical Impression: Allergic reaction Qualifiers: Encounter type: initial encounter Qualified Code(s): T78.40XA - Allergy, unspecified, initial encounter Condition: Good Instructions: ED Allergic Reaction General Other Follow-Up: Analilia Maradiaga ARNP [Primary Care Provider] - Within 1 week Comments: The cause of your symptoms is unclear today. Continue your medications at home. I did speak with Dr. Cano today. Keep your appointment with him. Return if you worsen. Continue to drink fluids at home. Discharge Date/Time: 08/07/18 12:06
[2018-08-07 07:43] LABS: BASOPHILS % (AUTO) 0.4 %; EOSINOPHILS % (AUTO) 0.2 %; HGB - HEMOGLOBIN 16.4 g/dL (14.0-18.0); LYMPHOCYTES # (AUTO) 1.2 10^3/uL (1.5-3.5); LYMPHOCYTES % (AUTO) 9.2 %; MEAN CORPUSCULAR HEMOGLOBIN 32.6 pg (27.0-31.0); MEAN CORPUSCULAR HGB CONC 34.3 g/dL (32.0-36.0); MEAN CORPUSCULAR VOLUME 95.2 fL (80.0-94.0); MEAN PLATELET VOLUME 9.6 fL (7.4-11.4); MONOCYTES # (AUTO) 0.4 10^3/uL (0.0-1.0); MONOCYTES % (AUTO) 3.2 %; NEUTROPHILS # (AUTO) 11.6 10^3/uL (1.5-6.6); PLT - PLATELET COUNT 145 10^3/uL (130-450); RED BLOOD COUNT 5.03 10^6/uL (4.70-6.10); RED CELL DISTRIBUTION WIDTH 13.2 % (12.0-15.0); WHITE BLOOD COUNT 13.3 x10^3/uL (4.8-10.8)
[2018-08-07 07:44] LABS: ALBUMIN 3.4 g/dL (3.2-5.5); ALBUMIN/GLOBULIN RATIO 1.1 (1.0-2.2); BILIRUBIN,TOTAL 1.5 mg/dL (0.2-1.0); CALCIUM 8.7 mg/dL (8.5-10.3); CREATININE 0.6 mg/dL (0.6-1.2); TOTAL PROTEIN 6.5 g/dL (6.7-8.2)
--- NOTE | 2018-08-07 07:56 | XRAY Report ---
Reason: hypoxia Procedure Date: 08/07/2018 Accession Number: [id number] / [id number] Procedure: XR - Chest 1 View X-Ray CPT Code: 29028 FULL RESULT: EXAM: CHEST RADIOGRAPHY EXAM DATE: 08/07/2018 07:36 AM. CLINICAL HISTORY: Hypoxia COMPARISON: CHEST 1 VIEW 06/04/2017 12:08 AM. TECHNIQUE: 1 view. FINDINGS: Lungs/Pleura: Mildly increased basilar opacities compared to prior could reflect atelectasis or possibly mild infection. Upper lungs are clear. No evidence of pleural effusion or pneumothorax. Mediastinum: Stable heart size and mediastinum. Other: None. IMPRESSION: 1. Mildly increased basilar opacities compared to prior could reflect increasing atelectasis or infection. RADIA
[2018-08-07] MEDS ORDERED: HYDROmorphone 1 MG/ML CARPUJECT IVP STA (08:19)
[2018-08-07] MEDS ORDERED: RACEPINEPHRINE 2.25% NEB INH STA (09:03)
[2018-08-07] MEDS ORDERED: methylPREDNISolone SUCCINATE 125 MG/2 ML VIAL IVP STA (09:03)
[2018-08-07] MEDS ORDERED: SODIUM CHLORIDE INHALATION 3 ML NEB INH STA (09:18)
[2018-08-07 12:06] VITALS: BP 145/86
== END 2018-08-07 12:06 | disposition home or self-care (01) ==
LOC: EDUNIT# → ED 06:45
DX: T78.40XA Allergy, unspecified, initial encounter (principal); R09.02 Hypoxemia; I10 Essential (primary) hypertension; F17.200 Nicotine dependence, unspecified, uncomplicated
CPT/HCPCS: 36415; 71045; 80053; 83690; 85025; 94640; 96361; 96374; 96375; 99283; 99285; J1170

== ENCOUNTER 2018-09-30 07:51 | Outpatient (CLI) | payer MEDICARE ==
--- NOTE | 2018-09-30 17:19 | Ultrasound Report ---
Reason: CIRRHOSIS OF LIVER Procedure Date: 09/30/2018 Accession Number: [id number] / [id number] Procedure: US - Abdomen Limited CPT Code: FULL RESULT: EXAM: ABDOMEN ULTRASOUND LIMITED, RUQ EXAM DATE: 09/30/2018 08:42 AM. CLINICAL HISTORY: CIRRHOSIS OF LIVER. COMPARISON: ABDOMEN LIMITED 07/21/2017 9:24 AM. TECHNIQUE: Real-time scanning was performed with static images obtained. FINDINGS: Liver: Coarsened echotexture with mildly nodular contour.No focal lesion. Liver measures 15.2 cm craniocaudally. Main portal vein flow: Hepatopetal. Gallbladder: Gallbladder wall thickness is normal.No gallstones.Sonographic Willis sign is absent, per technologist's notes. Biliary System: Common bile duct measures 4.9 mm. No intrahepatic ductal dilatation. Pancreas: Visualized portion is unremarkable. Right Kidney: 11.5 cm longitudinally. Normal echotexture.No hydronephrosis.There is prominent soft tissue at the mid pole of the right kidney which may represent prominent column of Patricio however appears more conspicuous than on the prior study on several images and mass lesion is not excluded.No calculus. Other: IMPRESSION: 1. Mildly nodular liver contour suggesting cirrhosis. No focal liver lesion. 2. Prominent mid pole right renal soft tissue may represent column of Patricio however appears more conspicuous than on the prior study and mass lesion is not excluded. Recommend correlation with renal mass protocol MR/CT, at clinician discretion. RADIA
== END 2018-09-30 07:52 | disposition home or self-care (01) ==
LOC: DI 07:51
PROVIDERS: ATTEND Physician Assistant
DX: K74.60 Unspecified cirrhosis of liver (principal)
CPT/HCPCS: 76705

== ENCOUNTER 2018-10-16 10:43 | Outpatient (CLI) | payer MEDICARE ==
[2018-10-16 13:53] LABS: BASOPHILS # (AUTO) 0.1 10^3/uL (0.0-0.1); EOSINOPHILS # (AUTO) 0.1 10^3/uL (0.0-0.7); EOSINOPHILS % (AUTO) 2.1 %; HGB - HEMOGLOBIN 16.5 g/dL (14.0-18.0); LYMPHOCYTES # (AUTO) 2.8 10^3/uL (1.5-3.5); LYMPHOCYTES % (AUTO) 44.6 %; MEAN CORPUSCULAR HEMOGLOBIN 32.2 pg (27.0-31.0); MEAN CORPUSCULAR HGB CONC 33.4 g/dL (32.0-36.0); MEAN CORPUSCULAR VOLUME 96.5 fL (80.0-94.0); MEAN PLATELET VOLUME 11.7 fL (7.4-11.4); MONOCYTES # (AUTO) 0.6 10^3/uL (0.0-1.0); MONOCYTES % (AUTO) 9.2 %; NEUTROPHILS # (AUTO) 2.7 10^3/uL (1.5-6.6); NEUTROPHILS % (AUTO) 42.8 %; PLT - PLATELET COUNT 207 10^3/uL (130-450); RED BLOOD COUNT 5.12 10^6/uL (4.70-6.10); RED CELL DISTRIBUTION WIDTH 12.9 % (12.0-15.0); WHITE BLOOD COUNT 6.3 x10^3/uL (4.8-10.8)
[2018-10-16 14:03] LABS: ALBUMIN 4.1 g/dL (3.2-5.5); ALBUMIN/GLOBULIN RATIO 1.3 (1.0-2.2); BILIRUBIN,TOTAL 1.2 mg/dL (0.2-1.0); CALCIUM 9.3 mg/dL (8.5-10.3); CREATININE 0.7 mg/dL (0.6-1.2); TOTAL PROTEIN 7.2 g/dL (6.7-8.2)
[2018-10-16 14:14] LABS: INR 1.1 (0.8-1.2); PT - PROTHROMBIN TIME 12.1 secs (9.9-12.6)
== END 2018-10-16 23:59 | disposition home or self-care (01) ==
LOC: LAB.N 10:43
PROVIDERS: ATTEND Physician Assistant
DX: K74.60 Unspecified cirrhosis of liver (principal)
CPT/HCPCS: 36415; 80053; 82105; 85025; 85610

== ENCOUNTER 2018-10-20 07:13 | Outpatient (CLI) | payer MEDICARE ==
[2018-10-20] MEDS ORDERED: IOVERSOL 320 100 ML VIAL IVP ONE ×2 (07:45→07:58)
--- NOTE | 2018-10-21 04:54 | CT Report ---
Reason: KIDNEY LESION Procedure Date: 10/20/2018 Accession Number: [id number] / [id number] Procedure: CT - ABDOMEN W/WO CPT Code: FULL RESULT: EXAM: CT ABDOMEN WITHOUT AND WITH CONTRAST (THREE-PHASE RENAL MASS PROTOCOL CT) EXAM DATE: 10/20/2018 07:57 AM. HISTORY: Renal lesion seen on prior ultrasound examination, further assessment and cauterization. COMPARISON: ABDOMEN LIMITED 09/30/2018 8:00 AM. TECHNIQUE: Prior to and after the administration of intravenous contrast, axial helical multidetector images are acquired. IV contrast: 90 mL Optiray 320. Enteric contrast: No. Reconstruction: Coronal and sagittal. In accordance with CT protocol optimization, one or more of the following dose reduction techniques were utilized for this exam: automated exposure control, adjustment of mA and/or KV based on patient size, or use of iterative reconstructive technique. FINDINGS: Right kidney: There is a right mid kidney column of Patricio noted. There is no suspicious lesion evident on this examination. No kidney stone or hydronephrosis noted. Left kidney: There is a 5 mm left lower kidney intrarenal stone. There is no hydronephrosis. No definite suspicious left renal lesion seen on this examination. Liver: Without significant abnormality. Slight volume loss within segment 4 of the liver and subtle nodularity is noted. This raises the possibility of potential early cirrhosis. Gallbladder: No calcified gallstone. No evidence of cholecystitis. Bile ducts: No biliary ductal dilation. Adrenals: Without significant abnormality. Pancreas: No significant abnormality. Spleen: No significant abnormality Bowel: No evidence of obstruction. There is distal colon diverticulosis without diverticulitis. Appendix: Normal. Vasculature: There is moderate to severe calcific atherosclerosis. No aneurysm. Lymph nodes: No significant lymphadenopathy. Other: Partially visualized coarsely calcified soft tissue nodule is seen within the left lower quadrant region, with at least a small fatty component. This may represent an area of fat necrosis, possibly a sequela of old instrumentation or trauma. In the axial plane this measures 3.1 cm (image 50 series 6). IMPRESSION: 1. No suspicious right-sided renal lesion. Prior sonographic noted finding corresponds to a column of Patricio. 2. There is a 5 mL right lower kidney intrarenal stone without obstruction. 3. Partially visualized coarsely calcified fat-containing lesion within the left lower quadrant, probably an area of fat necrosis. This measures 3.1 cm.
== END 2018-10-20 07:14 | disposition home or self-care (01) ==
LOC: DI 07:13
PROVIDERS: ATTEND Nurse Practitioner Gerontology
DX: N28.9 Disorder of kidney and ureter, unspecified (principal); N20.0 Calculus of kidney
CPT/HCPCS: 74170; Q9967

== ENCOUNTER 2019-12-02 07:00 | Outpatient (CLI) | payer MEDICARE ==
--- NOTE | 2019-12-02 14:23 | Ultrasound Report ---
PROCEDURE: Abdomen Limited INDICATIONS: CIRRHOSIS OF LIVER TECHNIQUE: Real-time scanning was performed of the abdominal and retroperitoneal organs, with image documentatio n. COMPARISON: CT abdomen 10/20/2018, ultrasound abdomen 09/30/2018. FINDINGS: Liver: Liver is normal in size and coarsened in echotexture. Gallbladder: Bladder demonstrates no stones. Wall thickness is within normal limits measuring 1.9 mm. Biliary ducts: Intrahepatic bile ducts are non-dilated. Extrahepatic bile duct caliber measures 4.4 mm. Normal is 6-7 mm or less in diameter, or 10 mm or less post-cholecystectomy. Kidneys: Kidneys are normal in size and echotexture. Right kidney measures 10.6 cm long. No hydron ephrosis or nephrolithiasis. No solid masses. IMPRESSION: 1. Coarsened hepatic echotexture as above. No focal lesions are identified. No distinct nodularity is identified. Reviewed by: Kenzie Rojas MD on 12/02/2019 2:22 PM PDT Approved by: Kenzie Rojas MD on 12/02/2019 2:22 PM PDT Station ID: [id number]
== END 2019-12-02 07:01 | disposition home or self-care (01) ==
LOC: DI 07:00
PROVIDERS: ATTEND Physician Assistant
DX: K74.60 Unspecified cirrhosis of liver (principal); E78.5 Hyperlipidemia, unspecified
CPT/HCPCS: 36415; 76705; 80053; 80061; 82105; 82728; 83540; 83721; 84466; 85025; 85610

== ENCOUNTER 2019-12-02 07:31 | Outpatient (CLI) | payer MEDICARE ==
[2019-12-02 07:54] LABS: BASOPHILS % (AUTO) 0.6 %; EOSINOPHILS # (AUTO) 0.1 10^3/uL (0.0-0.7); EOSINOPHILS % (AUTO) 1.4 %; HGB - HEMOGLOBIN 18.1 g/dL (14.0-18.0); LYMPHOCYTES # (AUTO) 3.1 10^3/uL (1.5-3.5); MEAN CORPUSCULAR HEMOGLOBIN 32.5 pg (27.0-31.0); MEAN CORPUSCULAR HGB CONC 34.3 g/dL (32.0-36.0); MEAN CORPUSCULAR VOLUME 94.8 fL (80.0-94.0); MEAN PLATELET VOLUME 10.8 fL (7.4-11.4); MONOCYTES # (AUTO) 0.5 10^3/uL (0.0-1.0); MONOCYTES % (AUTO) 7.9 %; NEUTROPHILS # (AUTO) 2.9 10^3/uL (1.5-6.6); NEUTROPHILS % (AUTO) 42.9 %; PLT - PLATELET COUNT 205 10^3/uL (130-450); RED BLOOD COUNT 5.57 10^6/uL (4.70-6.10); RED CELL DISTRIBUTION WIDTH 12.9 % (12.0-15.0); WHITE BLOOD COUNT 6.6 x10^3/uL (4.8-10.8)
[2019-12-02 08:21] LABS: ALBUMIN 4.3 g/dL (3.2-5.5); ALBUMIN/GLOBULIN RATIO 1.4 (1.0-2.2); CALCIUM 9.3 mg/dL (8.5-10.3); TOTAL PROTEIN 7.3 g/dL (6.7-8.2)
[2019-12-02 08:22] LABS: CHOL/HDL RATIO 3.7 (<5.0); CHOLESTEROL 172 mg/dL; HDL CHOLESTEROL 46 mg/dL; LDL CHOLESTEROL,CALCULATED 98 mg/dL; LDL/HDL RATIO 2.1 (<3.6); VLDL CHOLESTEROL 28 mg/dL
[2019-12-02 08:28] LABS: INR 1.1 (0.8-1.2); PT - PROTHROMBIN TIME 12.2 secs (9.9-12.6)
== END 2019-12-02 07:32 | disposition home or self-care (01) ==
LOC: LAB 07:31
PROVIDERS: ATTEND Nurse Practitioner Family
DX: E78.5 Hyperlipidemia, unspecified (principal); K74.60 Unspecified cirrhosis of liver
CPT/HCPCS: 36415; 80053; 80061; 82105; 82728; 83540; 83721; 84466; 85025; 85610

== ENCOUNTER 2020-07-27 21:09 | Outpatient (CLI) | payer MEDICARE | END 2020-07-27 21:10 | disposition critical access hospital (66) | LOC: EMS 21:09 | DX: R10.9 Unspecified abdominal pain (principal) | CPT/HCPCS: A0425; A0429 ==

== ENCOUNTER 2020-07-27 21:34 | Emergency (ER) | payer MEDICARE ==
[2020-07-27 21:55] LABS: BILIRUBIN,URINE NEGATIVE (NEGATIVE); GLUCOSE, URINE (UA) NEGATIVE (NEGATIVE); KETONES,URINE (UA) NEGATIVE (NEGATIVE); LEUKOCYTE ESTERASE, URINE NEGATIVE (NEGATIVE); NITRITE,URINE NEGATIVE (NEGATIVE); OCCULT BLOOD,URINE NEGATIVE (NEGATIVE); PROTEIN,URINE NEGATIVE (NEGATIVE); UROBILINOGEN,URINE 0.2 (NORMAL) E.U./dL (NORMAL)
[2020-07-27 21:56] LABS: CLARITY,URINE CLEAR (CLEAR)
[2020-07-27 22:02] LABS: BASOPHILS # (AUTO) 0.1 10^3/uL (0.0-0.1); BASOPHILS % (AUTO) 0.4 %; EOSINOPHILS # (AUTO) 0.1 10^3/uL (0.0-0.7); EOSINOPHILS % (AUTO) 0.7 %; HCT - HEMATOCRIT 52.6 % (42.0-52.0); HGB - HEMOGLOBIN 18.3 g/dL (14.0-18.0); LYMPHOCYTES # (AUTO) 3.6 10^3/uL (1.5-3.5); LYMPHOCYTES % (AUTO) 30.8 %; MEAN CORPUSCULAR HEMOGLOBIN 32.4 pg (27.0-31.0); MEAN CORPUSCULAR HGB CONC 34.8 g/dL (32.0-36.0); MEAN CORPUSCULAR VOLUME 93.1 fL (80.0-94.0); MEAN PLATELET VOLUME 10.7 fL (7.4-11.4); MONOCYTES % (AUTO) 8.5 %; NEUTROPHILS % (AUTO) 59.4 %; PLT - PLATELET COUNT 200 10^3/uL (130-450); RED BLOOD COUNT 5.65 10^6/uL (4.70-6.10); RED CELL DISTRIBUTION WIDTH 12.6 % (12.0-15.0); WHITE BLOOD COUNT 11.7 x10^3/uL (4.8-10.8)
[2020-07-27 22:19] LABS: ALBUMIN 4.4 g/dL (3.2-5.5); ALBUMIN/GLOBULIN RATIO 1.5 (1.0-2.2); BILIRUBIN,TOTAL 0.6 mg/dL (0.2-1.0); CALCIUM 9.4 mg/dL (8.5-10.3); POTASSIUM 3.8 mmol/L (3.5-5.0); TOTAL PROTEIN 7.4 g/dL (6.7-8.2)
[2020-07-27] MEDS ORDERED: IOPAMIDOL-300 100 ML VIAL ONE (22:41)
[2020-07-27] MEDS ORDERED: IOPAMIDOL-300 100 ML VIAL IVP ONE (22:57)
--- OUTSIDE RECORDS SUMMARY | 2020-07-27 23:19 | EXTERNAL MEDICAL SUMMARY RPT | Continuity of Care Document ---
:1960 Demographics Phone Unavailable Preferred Language Unknown Marital Status Unknown Shinto Affiliation Unknown Race Unknown Ethnic Group Unknown Author Organization [place] Address [address] [phone] Phone Social History date description facility [id number]
[2020-07-27] MEDS ORDERED: CIPROFLOXACIN 400 MG/200 ML 400 MG/200 ML BAG IV STA (23:57)
[2020-07-27] MEDS ORDERED: metroNIDAZOLE 500 MG/100 ML 500 MG/100 ML BAG IV ONE (23:57)
--- NOTE | 2020-07-27 23:59 | ED Physician Documentation ---
PD HPI ABD PAIN - Stated complaint Stated Complaint: ABD PX - Chief complaint Chief Complaint: Abd Pain - History obtained from History obtained from: Patient - History of Present Illness Timing - onset: Last night Timing - duration: Days (1) Timing - details: Gradual onset, Still present Quality: Cramping, Sharp, Pain Location: LUQ Radiation: Left flank Improved by: Laying still Worsened by: Moving, Breathing, Position, Palpation Associated symptoms: Nausea. No: Vomiting Similar symptoms before: Has not had sx before Recently seen: Not recently seen - Additional information Additional information: Previously well 60-year-old male with a history of throat cancer has developed some pain in his left flank that began last night and has progressively worsened. He was able to sleep last night today his pain has worsened and worsened and this evening when it worsened rather rapidly he called the ambulanc e to come to the emergency department for evaluation. He figured if he waited longer he would be in agony. He does not have a fever he has a chronic smoker's cough that is unchanged. Review of Systems Constitutional: denies: Fever Eyes: denies: Decreased vision Ears: denies: Ear pain Nose: denies: Congestion Throat: denies: Sore throat Cardiac: denies: Chest pain / pressure Respiratory: reports: Cough. denies: Dyspnea GI: reports: Abdominal Pain, Nausea. denies: Vomiting : denies: Dysuria, Frequency Skin: denies: Rash Musculoskeletal: denies: Neck pain Neurologic: denies: Generalized weakness, Focal weakness, Numbness PD PAST MEDICAL HISTORY - Past Medical History Past Medical History: Yes Cardiovascular: Hypertension Respiratory: None Endocrine/Autoimmune: None GI: GERD : None HEENT: Chronic vision loss Psych: Post traumatic stress disorder Musculoskeletal: Chronic back pain, Other Derm: None - Past Surgical History Past Surgical History: Yes General: Other HEENT: Tonsil/Adenoidectomy Derm: Skin grafts - Present Medications Home Medications: Ambulatory Orders Medication Instructions Recorded Confirmed Amitriptyline [Elavil] 25 mg PO QPM 07/09/13 08/07/18 Losartan [Cozaar] 50 mg PO DAILY 06/04/17 08/07/18 Folic Acid 1 mg PO DAILY #100 tablet 06/07/17 08/07/18 Pantoprazole [Protonix] 40 mg PO QDAC #30 tablet 06/07/17 08/07/18 Propranolol [Inderal] 10 mg PO BID #60 tablet 06/07/17 08/07/18 Thiamine [Vitamin B-1] 100 mg PO DAILY #100 tablet 06/07/17 08/07/18 Acetaminophen 325 mg PO Q4HR PRN 08/07/18 08/07/18 Chlorhexidine Gluconate 15 ml PO BID 08/07/18 08/07/18 Diphenhydramine HCl [Allergy 12.5 mg PO Q6HR PRN 08/07/18 08/07/18 Relief] Lovastatin 10 mg PO DAILY PM 08/07/18 08/07/18 Ondansetron Odt [Zofran Odt] 4 mg PO PRN PRN 08/07/18 08/07/18 methylPREDNISolone 4 mg PO DAILY 08/07/18 08/07/18 [Methylprednisolone] oxyCODONE [Roxicodone] 5 mg PO Q4HR PRN 08/07/18 08/07/18 polyethylene glycoL 3350 [Miralax] 17 gm PO PRN PRN 08/07/18 08/07/18 Ciprofloxacin HCl [Cipro] 500 mg PO BID #14 tablet 07/28/20 metroNIDAZOLE [Flagyl] 500 mg PO BID #14 tablet 07/28/20 traMADol [Ultram] 50 - 100 mg PO Q6H PRN #20 tablet 07/28/20 - Allergies Allergies/Adverse Reactions: Allergies Allergy/AdvReac Type Severity Reaction Status Date / Time ibuprofen AdvReac Severe Dizziness Verified 07/27/20 21:43 apple AdvReac Hives Verified 07/27/20 21:43 - Social History Does the pt smoke?: Yes Smoking Status: Current every day smoker Does the pt drink ETOH?: Yes Does the pt have substance abuse?: No - Immunizations Immunizations are current?: Yes - POLST Patient has POLST: No POLST Status: Full Code PD ED PE NORMAL - Vitals Vital signs reviewed: Yes (hypertensive ) - General General: Alert and oriented X 3, No acute distress, Well developed/nourished - HEENT HEENT: Atraumatic, PERRL, EOMI - Neck Neck: Supple, no meningeal sign, No bony TTP - Cardiac Cardiac: RRR, No murmur - Respiratory Respiratory: No respiratory distress, Clear bilaterally - Abdomen Abdomen: Normal bowel sounds, Soft, Non distended, No organomegaly, Other (There is specific tenderness to the LUQ and to the left flank. There is some garding. 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, No motor deficit, No sensory deficit, Normal speech Eye Opening: Spontaneous Motor: Obeys Commands Verbal: Oriented GCS Score: 15 - Psych Psych: Normal mood, Normal affect Results - Vitals Vitals: Vital Signs - 24 hr 07/27/20 07/27/20 07/27/20 21:43 21:45 23:45 Temperature 36.5 C 36.5 C Heart Rate 96 96 99 Respiratory 16 16 16 Rate Blood Pressure 142/95 H 142/95 H 129/97 H O2 Saturation 94 94 99 07/28/20 01:00 Temperature Heart Rate 102 H Respiratory 16 Rate Blood Pressure 108/89 H O2 Saturation 97 Oxygen O2 Source Room air - Labs Labs: Laboratory Tests 07/27/20 07/27/20 07/27/20 21:38 21:50 21:50 WBC 11.7 H RBC 5.65 Hgb 18.3 H Hct 52.6 H MCV 93.1 MCH 32.4 H MCHC 34.8 RDW 12.6 Plt Count 200 MPV 10.7 Neut # (Auto) 7.0 H Lymph # (Auto) 3.6 H [place] # (Auto) 1.0 Eos # (Auto) 0.1 Baso # (Auto) 0.1 Absolute Nucleated RBC 0.00 Nucleated RBC % 0.0 Sodium 137 Potassium 3.8 Chloride 101 Carbon Dioxide 26 Anion Gap 10.0 BUN 10 Creatinine 1.0 Estimated GFR (MDRD) 77 L Glucose 118 H Calcium 9.4 Total Bilirubin 0.6 AST 24 ALT 30 Alkaline Phosphatase 69 Total Protein 7.4 Albumin 4.4 Globulin 3.0 Albumin/Globulin Ratio 1.5 Lipase 28 Urine Color YELLOW Urine Clarity CLEAR Urine pH 6.0 Ur Specific [place] 1.010 Urine Protein NEGATIVE Urine Glucose (UA) NEGATIVE Urine Ketones NEGATIVE Urine Occult Blood NEGATIVE Urine Nitrite NEGATIVE Urine Bilirubin NEGATIVE Urine Urobilinogen 0.2 (NORMAL) Ur Leukocyte Esterase NEGATIVE Ur Microscopic Review NOT INDICATED Urine Culture Comments NOT INDICATED - Rads (name of study) CT ab/pel with Radiology: Prelim report reviewed (Impression: Advanced mid descending colitis versus diverticulitis.), EMP read indepedently, See rad report Procedures - Bedside sono Bedside sono by EMP: With use bedside ultrasound the left kidney is imaged there is no evidence of hydronephrosis and the kidney does appear to be sonographically tender. Mostly to the lower pole. PD MEDICAL DECISION MAKING - ED course Complexity details: reviewed old records, reviewed results, re-evaluated patient, considered differential, d/w patient ED course: 60-year-old male with left flank pain that is progressively worsened throughout the day has a slow onset of pain inconsistent with kidney stone. He does have sonographic tenderness to the kidney and there is no evidence of hydronephrosis. My concern was for pyelonephritis and when we found a normal-appearing urine a CT scan of the abdomen pelvis with contrast was undertaken demonstrating descending colon diverticulitis without abscess or perforation. The patient is administered ciprofloxacin 400 mg intravenously and Flagyl 500 mg intravenously as well as a liter of saline. He is given Dilaudid and Zofran for pain control as he is allergic to ibuprofen with anaphylaxis. We will send him home with a script for cipro, flagyl and tramadol with reasons for return reviewed with the patient. Departure - Departure Disposition: Home, Self Care Clinical Impression: Diverticulitis Condition: Stable Instructions: ED Diverticulitis Follow-Up: Mallika Lozoya PA-C [Physician No Access] - Prescriptions: Ciprofloxacin HCl [Cipro] 500 mg PO BID #14 tablet metroNIDAZOLE [Flagyl] 500 mg PO BID #14 tablet traMADol [Ultram] 50 - 100 mg PO Q6H PRN #20 tablet PRN Reason: Pain
[2020-07-28] MEDS ORDERED: HYDROmorphone 1 MG/ML CARPUJECT IVP STA (00:10)
[2020-07-28] MEDS ORDERED: ONDANSETRON 4 MG/2 ML VIAL IVP STA ×2 (00:29→01:34)
[2020-07-28] MEDS ORDERED: SODIUM CHLORIDE 0.9% 1,000 ML IV STA (01:35)
[2020-07-28 02:15] VITALS: BP 115/82
--- NOTE | 2020-07-28 08:47 | CT Report ---
PROCEDURE: Abdomen/Pelvis W INDICATIONS: LUQ pain CONTRAST: IV CONTRAST: Isovue 300 ml: 100 PO CONTRAST: *NO PO CONTRAST TECHNIQUE: After the administration of nonionic contrast, 5 mm thick sections acquired from the diaphragms to th e symphysis. 5 mm thick coronal and sagittal reformats were acquired. For radiation dose reduction, the following was used: automated exposure control, adjustment of mA and/or kV according to patient size. COMPARISON: Similar CT 10/20/2018 reviewed. FINDINGS: Image quality: Excellent. ABDOMEN: Lung bases: Lung bases are clear. Heart size is normal. Solid organs: Liver and spleen are normal in size and enhancement. Gallbladder appears partially co ntracted Biliary system is non dilated. Pancreas enhances normally. No adrenal nodules. Kidneys d emonstrate normal size and enhancement, without hydronephrosis. Peritoneum and bowel: Small bowel loops demonstrate normal wall thickness and caliber. No free fluid or air. The descending colon is abnormal, lateral to the lower left kidney and demonstrates adjacen t edema and several diverticula with acute diverticulitis but no peridiverticular abscess in this are a. More inferiorly no acute diverticulitis but mild diverticulosis appears present. Nodes and vessels: No retroperitoneal or mesenteric adenopathy by size criteria. Aorta and inferior vena cava are normal in size. Miscellaneous: No ventral hernias. PELVIS: Genitourinary: Bladder wall thickness is normal. Miscellaneous: No inguinal hernias or adenopathy. At the left iliac fossa seen on series 4 image 67 there is a heterogeneously calcified structure measuring up to 2.8 cm, independent of adjacent bowel structures. 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 Bones: No suspicious bony lesions. No vertebral body compression fractures. IMPRESSION: Acute diverticulitis without peridiverticular abscess involving the descending colon, mi ddle third of the abdomen/pelvis. Additional mild diverticulitis is not seen elsewhere. Mild divertic ulosis is seen involving the sigmoid colon. There is a 2.8 cm heterogeneously calcified structure at the anterior left iliac fossa, indeterminate etiology but without associated soft tissue mass or adjacent inflammation and having been present si nce at least CT scanning performed 10/20/2018 it is presumed benign in etiology and requires no imagin g follow-up. Reviewed by: Andrea Vee MD on 07/28/2020 8:46 AM PDT Approved by: Andrea Vee MD on 07/28/2020 8:46 AM PDT Station ID: [id number]
== END 2020-07-28 02:50 | disposition home or self-care (01) ==
LOC: EDUNIT# → ED 21:34
DX: K57.32 Diverticulitis of large intestine without perforation or abscess without bleeding (principal); I10 Essential (primary) hypertension; F17.200 Nicotine dependence, unspecified, uncomplicated; Z85.819 Personal history of malignant neoplasm of unspecified site of lip, oral cavity, and pharynx; Z88.6 Allergy status to analgesic agent
CPT/HCPCS: 36415; 74177; 80053; 81003; 83690; 85025; 96365; 96368; 96375; 99284; 99285; J1170; Q9967; 81001; 87086

== ENCOUNTER → 2020-12-03 | Outpatient (CLI) | payer MEDICARE ==
[2020-12-03 11:41] LABS: BASOPHILS # (AUTO) 0.1 10^3/uL (0.0-0.1); BASOPHILS % (AUTO) 0.7 %; EOSINOPHILS # (AUTO) 0.1 10^3/uL (0.0-0.7); EOSINOPHILS % (AUTO) 1.3 %; HCT - HEMATOCRIT 54.4 % (42.0-52.0); HGB - HEMOGLOBIN 18.5 g/dL (14.0-18.0); LYMPHOCYTES # (AUTO) 3.1 10^3/uL (1.5-3.5); LYMPHOCYTES % (AUTO) 37.7 %; MEAN CORPUSCULAR HEMOGLOBIN 32.1 pg (27.0-31.0); MEAN CORPUSCULAR VOLUME 94.3 fL (80.0-94.0); MEAN PLATELET VOLUME 11.6 fL (7.4-11.4); MONOCYTES # (AUTO) 0.6 10^3/uL (0.0-1.0); MONOCYTES % (AUTO) 7.7 %; NEUTROPHILS # (AUTO) 4.3 10^3/uL (1.5-6.6); NEUTROPHILS % (AUTO) 52.4 %; PLT - PLATELET COUNT 217 10^3/uL (130-450); RED BLOOD COUNT 5.77 10^6/uL (4.70-6.10); RED CELL DISTRIBUTION WIDTH 13.3 % (12.0-15.0); WHITE BLOOD COUNT 8.2 x10^3/uL (4.8-10.8)
[2020-12-03 12:35] LABS: ALBUMIN 4.5 g/dL (3.2-5.5); ALBUMIN/GLOBULIN RATIO 1.4 (1.0-2.2); ALKALINE PHOSPHATASE 66 IU/L (42-121); ALT ALANINE AMINOTRANSFERASE 25 IU/L (10-60); AST ASPARTATE AMINOTRANSFERASE 25 IU/L (10-42); BILIRUBIN,TOTAL 1.4 mg/dL (0.2-1.0); BUN - BLOOD UREA NITROGEN 9 mg/dL (6-20); CALCIUM 9.7 mg/dL (8.5-10.3); CARBON DIOXIDE - CO2 27 mmol/L (21-32); CHLORIDE 102 mmol/L (101-111); CHOL/HDL RATIO 3.4 (<5.0); CHOLESTEROL 185 mg/dL; CREATININE 1.1 mg/dL (0.6-1.2); GFR - MDRD 69 (>89); GLUCOSE 96 mg/dL (70-100); HDL CHOLESTEROL 55 mg/dL; LDL CHOLESTEROL,CALCULATED 110 mg/dL; POTASSIUM 4.4 mmol/L (3.5-5.0); SODIUM 141 mmol/L (135-145); TOTAL PROTEIN 7.8 g/dL (6.7-8.2); TRIGLYCERIDES 102 mg/dL; VLDL CHOLESTEROL 20 mg/dL
[2020-12-03 12:37] LABS: THYROID STIMULATING HORMONE 1.35 uIU/mL (0.34-5.60)
== END ==
LOC: LAB.WCP 08:00
PROVIDERS: ATTEND Internal Medicine
DX: K70.30 Alcoholic cirrhosis of liver without ascites (principal); I10 Essential (primary) hypertension; Z12.5 Encounter for screening for malignant neoplasm of prostate; R60.0 Localized edema
CPT/HCPCS: 36415; 80053; 80061; 82105; 84443; 85025; G0103; 81599; 83721; 84153

== ENCOUNTER 2020-12-12 08:16 | Outpatient (CLI) | payer MEDICARE ==
--- NOTE | 2020-12-12 12:36 | Ultrasound Report ---
PROCEDURE: Abdomen Complete INDICATIONS: ALCOHOLIC CIRRHOSIS TECHNIQUE: Real-time scanning was performed of the abdominal and retroperitoneal organs, with image documentatio n. COMPARISON: CT abdomen and pelvis 07/27/2020. FINDINGS: Liver: Normal size. Coarsened echotexture. No obvious mass. Gallbladder: Gallbladder is nondistended. No stones or sludge. No gallbladder wall thickening. No per icholecystic fluid. Negative sonographic Willis sign. Biliary ducts: Intrahepatic bile ducts are non-dilated. Extrahepatic bile duct caliber measures 4 m m. Normal is 6-7 mm or less in diameter, or 10 mm or less post-cholecystectomy. Pancreas: Visualized portions of the pancreas are sonographically normal. Tail is obscured by bowel gas. Spleen: Spleen is normal in size and homogeneous in echotexture. Measures 9.9 cm. Kidneys: Kidneys are normal in size and echotexture. Right kidney measures 10.5 cm long; left kidne y measures 12.1 cm long. No hydronephrosis. Nonobstructing calculus in the inferior pole the left k idney measuring 1 cm. No solid masses. Aorta: Visualized aorta is normal in caliber at less than 3 cm. Calcified plaque is seen. Iliacs: Proximal common iliac arteries are normal in caliber at less than 2.5 cm. IVC: Intrahepatic inferior vena cava is patent. Miscellaneous: No free abdominal fluid. IMPRESSION: 1. Coarsened liver echotexture. This could be seen in hepatocellular disease. No obvious liver mass. 2. No gallstones. 3. Nonobstructing left kidney stone. Reviewed by: Gadiel Aguilar MD on 12/12/2020 11:35 AM [facility] Approved by: Gadiel Aguilar MD on 12/12/2020 11:35 AM ALCON Station ID: [id number]
== END 2020-12-12 08:17 | disposition home or self-care (01) ==
LOC: DI 08:16
PROVIDERS: ATTEND Internal Medicine
DX: K70.30 Alcoholic cirrhosis of liver without ascites (principal); N20.0 Calculus of kidney

== ENCOUNTER 2021-02-02 11:09 | Emergency (ER) | payer MEDICARE ==
[2021-02-02 11:35] LABS: BASOPHILS # (AUTO) 0.1 10^3/uL (0.0-0.1); BASOPHILS % (AUTO) 0.6 %; EOSINOPHILS # (AUTO) 0.1 10^3/uL (0.0-0.7); EOSINOPHILS % (AUTO) 0.6 %; HCT - HEMATOCRIT 55.3 % (42.0-52.0); HGB - HEMOGLOBIN 19.2 g/dL (14.0-18.0); LYMPHOCYTES # (AUTO) 2.8 10^3/uL (1.5-3.5); LYMPHOCYTES % (AUTO) 24.7 %; MEAN CORPUSCULAR HEMOGLOBIN 32.2 pg (27.0-31.0); MEAN CORPUSCULAR HGB CONC 34.7 g/dL (32.0-36.0); MEAN CORPUSCULAR VOLUME 92.8 fL (80.0-94.0); MEAN PLATELET VOLUME 10.2 fL (7.4-11.4); MONOCYTES # (AUTO) 0.9 10^3/uL (0.0-1.0); MONOCYTES % (AUTO) 8.1 %; NEUTROPHILS # (AUTO) 7.6 10^3/uL (1.5-6.6); NEUTROPHILS % (AUTO) 65.7 %; PLT - PLATELET COUNT 167 10^3/uL (130-450); RED BLOOD COUNT 5.96 10^6/uL (4.70-6.10); RED CELL DISTRIBUTION WIDTH 13.3 % (12.0-15.0); WHITE BLOOD COUNT 11.5 x10^3/uL (4.8-10.8)
[2021-02-02 11:48] LABS: ALBUMIN 4.4 g/dL (3.2-5.5); ALBUMIN/GLOBULIN RATIO 1.4 (1.0-2.2); BILIRUBIN,TOTAL 1.8 mg/dL (0.2-1.0); CALCIUM 9.7 mg/dL (8.5-10.3); CREATININE 1.3 mg/dL (0.6-1.2); POTASSIUM 4.1 mmol/L (3.5-5.0); TOTAL PROTEIN 7.6 g/dL (6.7-8.2)
[2021-02-02 12:00] LABS: BILIRUBIN,URINE NEGATIVE (NEGATIVE); GLUCOSE, URINE (UA) NEGATIVE (NEGATIVE); KETONES,URINE (UA) NEGATIVE (NEGATIVE); LEUKOCYTE ESTERASE, URINE NEGATIVE (NEGATIVE); NITRITE,URINE NEGATIVE (NEGATIVE); OCCULT BLOOD,URINE NEGATIVE (NEGATIVE); PROTEIN,URINE NEGATIVE (NEGATIVE); UROBILINOGEN,URINE 0.2 (NORMAL) E.U./dL (NORMAL)
[2021-02-02 12:03] LABS: CLARITY,URINE CLOUDY (CLEAR)
[2021-02-02] MEDS ORDERED: SODIUM CHLORIDE 0.9% 1,000 ML IV STA (12:20)
[2021-02-02] MEDS ORDERED: IOVERSOL 320 100 ML VIAL IVP ONE ×2 (12:28→12:46)
[2021-02-02 12:34] LABS: INR 1.2 (0.8-1.2); PT - PROTHROMBIN TIME 12.9 secs (9.9-12.6)
[2021-02-02 12:45] LABS: AMORPHOUS SEDIMENT,UR Moderate /LPF; BACTERIA,URINE None Seen /HPF (None Seen); RBC,URINE 0-5 /HPF (0-5); SQUAMOUS EPITHELIAL CELL,UR NONE SEEN (<= Few); WBC,URINE 0-3 /HPF (0-3)
[2021-02-02] MEDS ORDERED: MORPHINE 2 MG/ML CARPUJECT IVP STA (12:46)
--- NOTE | 2021-02-02 12:55 | ED Physician Documentation ---
PD HPI ABD PAIN - Stated complaint Stated Complaint: ABD PX/BLOOD IN STOOL - Chief complaint Chief Complaint: Abd Pain - History obtained from History obtained from: Patient - History of Present Illness Timing - onset: How many days ago (4) Timing - duration: Days (4) Timing - details: Gradual onset Pain level max: 7 Pain level now: 7 Quality: Aching, Pain Location: LLQ Radiation: No: Chest, , Lower back, Left flank, Left shoulder, Right flank, Right shoulder, Upper back Improved by: No: Eating, Laying still, Vomiting, BM, Position, Meds Worsened by: Moving, Palpation Associated symptoms: Diarrhea, Hematochezia. No: Fever, Nausea, Vomiting, Hematemesis, Constipation, Melena, Dysuria, Hematuria, Chest pain, Dizzy Similar symptoms before: Diagnosis (diverticulitis) Review of Systems Constitutional: denies: Fever, Chills Respiratory: denies: Cough GI: denies: Nausea, Vomiting, Hematemesis : denies: Dysuria Skin: denies: Rash Musculoskeletal: denies: Neck pain, Back pain Neurologic: denies: Headache PD PAST MEDICAL HISTORY - Past Medical History Cardiovascular: Hypertension Respiratory: None Endocrine/Autoimmune: None GI: GERD : None HEENT: Chronic vision loss Psych: Post traumatic stress disorder Musculoskeletal: Chronic back pain, Other Derm: None - Past Surgical History Past Surgical History: Yes General: Other HEENT: Tonsil/Adenoidectomy Derm: Skin grafts - Present Medications Home Medications: Ambulatory Orders Medication Instructions Recorded Confirmed Losartan [Cozaar] 100 mg PO DAILY 06/04/17 02/02/21 Acetaminophen 325 mg PO Q4HR PRN 08/07/18 02/02/21 Lovastatin 10 mg PO DAILY PM 08/07/18 02/02/21 Gabapentin [Neurontin] 300 mg PO BID 07/28/20 02/02/21 Amox/Clav 875/125 [Augmentin] 1 each PO Q8H #30 tablet 02/02/21 HYDROcod/ACETAM 5/325 [Washta 5/325] 1 - 2 ea PO Q6H PRN #14 tablet 02/02/21 Ondansetron Odt [Zofran] 4 mg TL Q6H PRN #10 tablet 02/02/21 - Allergies Allergies/Adverse Reactions: Allergies Allergy/AdvReac Type Severity Reaction Status Date / Time ibuprofen AdvReac Severe Dizziness Verified 02/02/21 11:14 apple AdvReac Hives Verified 02/02/21 11:14 - Social History Does the pt smoke?: Yes Smoking Status: Current every day smoker Does the pt drink ETOH?: Yes Does the pt have substance abuse?: No - Immunizations Immunizations are current?: Yes - POLST Patient has POLST: No POLST Status: Full Code PD ED PE NORMAL - Vitals Vital signs reviewed: Yes - General General: Alert and oriented X 3, No acute distress, Well developed/nourished - HEENT HEENT: Moist mucous membranes - Neck Neck: Supple, no meningeal sign - Cardiac Cardiac: RRR, Strong equal pulses - Respiratory Respiratory: No respiratory distress, Clear bilaterally - Abdomen Abdomen: Soft, Non distended, Other (Tender to palpation left lower quadrant. No peritoneal signs.) - Male Male : Pt declined - Derm Derm: Warm and dry - Extremities Extremities: No edema - Neuro Neuro: Alert and oriented X 3 - Psych Psych: Normal mood, Normal affect Results - Vitals Vitals: Vital Signs - 24 hr 02/02/21 02/02/21 02/02/21 11:17 13:10 14:45 Temperature 36.8 C 36.7 C Heart Rate 100 73 79 Respiratory 20 12 16 Rate Blood Pressure 135/99 H 118/95 H 107/81 H O2 Saturation 96 93 91 L 02/02/21 14:55 Temperature 36.9 C Heart Rate Respiratory Rate Blood Pressure O2 Saturation Oxygen O2 Source Room air - Labs Labs: Laboratory Tests 02/02/21 02/02/21 02/02/21 11:22 11:25 11:25 WBC 11.5 H RBC 5.96 Hgb 19.2 H Hct 55.3 H MCV 92.8 MCH 32.2 H MCHC 34.7 RDW 13.3 Plt Count 167 MPV 10.2 Neut # (Auto) 7.6 H Lymph # (Auto) 2.8 [place] # (Auto) 0.9 Eos # (Auto) 0.1 Baso # (Auto) 0.1 Absolute Nucleated RBC 0.00 Nucleated RBC % 0.0 PT INR Sodium 139 Potassium 4.1 Chloride 103 Carbon Dioxide 27 Anion Gap 9.0 BUN 13 Creatinine 1.3 H Estimated GFR (MDRD) 57 L Glucose 111 H Calcium 9.7 Total Bilirubin 1.8 H AST 21 ALT 21 Alkaline Phosphatase 78 Total Protein 7.6 Albumin 4.4 Globulin 3.2 Albumin/Globulin Ratio 1.4 Lipase 27 Urine Color YELLOW Urine Clarity CLOUDY Urine pH 6.0 Ur Specific [place] 1.015 Urine Protein NEGATIVE Urine Glucose (UA) NEGATIVE Urine Ketones NEGATIVE Urine Occult Blood NEGATIVE Urine Nitrite NEGATIVE Urine Bilirubin NEGATIVE Urine Urobilinogen 0.2 (NORMAL) Ur Leukocyte Esterase NEGATIVE Urine RBC 0-5 Urine WBC 0-3 Ur Squamous Epith Cells NONE SEEN Amorphous Sediment Moderate Urine Bacteria None Seen Ur Microscopic Review INDICATED Urine Culture Comments NOT INDICATED Ethyl Alcohol 02/02/21 02/02/21 12:17 12:17 WBC RBC Hgb Hct MCV MCH MCHC RDW Plt Count MPV Neut # (Auto) Lymph # (Auto) [place] # (Auto) Eos # (Auto) Baso # (Auto) Absolute Nucleated RBC Nucleated RBC % PT 12.9 H INR 1.2 Sodium Potassium Chloride Carbon Dioxide Anion Gap BUN Creatinine Estimated GFR (MDRD) Glucose Calcium Total Bilirubin AST ALT Alkaline Phosphatase Total Protein Albumin Globulin Albumin/Globulin Ratio Lipase Urine Color Urine Clarity Urine pH Ur Specific [place] Urine Protein Urine Glucose (UA) Urine Ketones Urine Occult Blood Urine Nitrite Urine Bilirubin Urine Urobilinogen Ur Leukocyte Esterase Urine RBC Urine WBC Ur Squamous Epith Cells Amorphous Sediment Urine Bacteria Ur Microscopic Review Urine Culture Comments Ethyl Alcohol < 5.0 - Rads (name of study) CT abd/pelvis Radiology: Final report received, EMP read contemporaneously, See rad report ( IMPRESSION: 1. Finding is suggestive of acute diverticulitis involving distal descending colon. No signs of perforation. No abscess collection. No free fluid of free air. 2. Normal appendix. No bowel obstruction. 3. Stable partially calcified structure within anterior left iliac fossa unchanged yvette) PD MEDICAL DECISION MAKING - ED course Complexity details: considered differential, d/w patient ED course: Patient is a 60-year-old male with acute diverticulitis. No evidence of perforation or abscess. Will place on antibiotics for home. Patient is well- appearing, nontoxic. Afebrile. Small amount of rectal bleeding likely secondary to diverticulitis. He will follow up with his doctor for this and for colonoscopy after resolution of symptoms. Patient counseled regarding signs and symptoms for which I believe and urgent re-evaluation would be necessary. Patient with good understanding of and agreement to plan and is comfortable going home at this time This document was made in part using voice recognition software. While efforts are made to proofread this document, sound alike and grammatical errors may occur. IMPRESSION: 1. Finding is suggestive of acute diverticulitis involving distal descending colon. No signs of perforation. No abscess collection. No free fluid of free air. 2. Normal appendix. No bowel obstruction. 3. Stable partially calcified structure within anterior left iliac fossa unchanged dating back to 2019 study and likely represent benign process. Departure - Departure Disposition: 01 Home, Self Care Clinical Impression: Diverticulitis, BRBPR (bright red blood per rectum) Condition: Good Instructions: ED Diverticulitis, ED Hematochezia Stable Follow-Up: Keith Escalante MD [Primary Care Provider] - Prescriptions: Amox/Clav 875/125 [Augmentin] 1 each PO Q8H #30 tablet HYDROcod/ACETAM 5/325 [[place] 5/325] 1 - 2 ea PO Q6H PRN #14 tablet PRN Reason: Pain Ondansetron Odt [Zofran] 4 mg TL Q6H PRN #10 tablet PRN Reason: Nausea / Vomiting Comments: Your prescriptions were sent to [facility] in [place]. You do have divertic ulitis on CT scan. Return if you are worsening. You should start to notice improvement within 24 to 48 hours. Drink plenty of fluids. Take all antibiotics until gone even if you are feeling better. I am prescribing a short course of narcotic pain medication for you. These are potentially dangerous and addictive medications that should be used carefully. These medications may constipate you. Take an jjef-[id number]-[id number] stool softener (docusate) twice daily with plenty of water while taking these medications. If you go 24 hours without a bowel movement, take [id number] miralax, per package instructions. Do not drink or drive while taking these medications. If you received narcotic or sedating medications while in the emergency department, do not drive for 24 hours. Store this medication in a safe, secure place and out of reach of children. It is a violation of federal law to give or sell this medication to another person or to use in a manner other than prescribed. The ED will not refill narcotic prescriptions, including prescriptions lost or stolen. To dispose of unwanted medications: 1. [facility] at [address] in [place] has a medication drop box. They accept prescription medications (in pill form) Monday through Monday 9:00 a.m. to 5:00 p.m. 2. [facility] accepts prescription medications (in pill form only) for disposal year round. Call for more information. 3. Contact the [facility] for the next [facility] sponsored prescription drug collection event. , [phone], or [phone]; Discharge Date/Time: 02/02/21 15:03
--- NOTE | 2021-02-02 14:31 | CT Report ---
PROCEDURE: Abdomen/Pelvis W INDICATIONS: LLQ abd pain, rectal bleeding CONTRAST: IV CONTRAST: Isovue 370 ml: 100 PO CONTRAST: *NO PO CONTRAST TECHNIQUE: After the administration of IV contrast, 5 mm thick sections acquired from the diaphragms to the symp hysis. 5 mm thick coronal and sagittal reformats were acquired. For radiation dose reduction, the f ollowing was used: automated exposure control, adjustment of mA and/or kV according to patient size. COMPARISON: 07/27/2020, 10/20/2018. FINDINGS: Image quality: Excellent. ABDOMEN: Lung bases: Bibasilar dependent atelectasis is seen. Heart size is normal. Solid organs: Liver and spleen are normal in size and enhancement. Gallbladder is within normal ramirez its. Biliary system is non dilated. Pancreas enhances normally. No adrenal nodules. Kidneys demon strate normal size and enhancement, without hydronephrosis. Peritoneum and bowel: There is no bowel obstruction. No gastric or small bowel wall thickening. Appen joaquín is visualized in right lower quadrant and is within normal limits. Wall thickening involving dist al descending colon with. Colonic fat stranding is seen. Mild sigmoid and descending colon diverticul osis is noted. No abscess collection. No free fluid of free air. Nodes and vessels: No retroperitoneal or mesenteric adenopathy by size criteria. Aorta and inferior vena cava are normal in size. Moderate atherosclerotic calcifications in abdominal aorta is seen. Miscellaneous: No ventral hernias. PELVIS: Genitourinary: Bladder wall thickness is normal. Miscellaneous: No inguinal hernias or adenopathy. Previously described 2.7 x 2 cm partially calcifie d structure in left iliac fossa remains unchanged in size and appearance compared to previous studies . Bones: No suspicious bony lesions. No vertebral body compression fractures. IMPRESSION: 1. Finding is suggestive of acute diverticulitis involving distal descending colon. No signs of perfo ration. No abscess collection. No free fluid of free air. 2. Normal appendix. No bowel obstruction. 3. Stable partially calcified structure within anterior left iliac fossa unchanged dating back to study and likely represent benign process. Reviewed by: Ángel Oshea MD on 02/02/2021 2:30 PM PDT Approved by: Ángel Oshea MD on 02/02/2021 2:30 PM PDT Station ID: [id number]
[2021-02-02] MEDS ORDERED: AMOX/CLAV 875 MG/125 MG TABLET PO STA (14:42)
[2021-02-02 14:46] VITALS: BP 107/81
[2021-02-02] MEDS ORDERED: HYDROcod/ACETAM 5/325 MG TABLET PO STA (14:55)
== END 2021-02-02 15:03 | disposition home or self-care (01) ==
LOC: ED 11:09
DX: K57.33 Diverticulitis of large intestine without perforation or abscess with bleeding (principal); F17.200 Nicotine dependence, unspecified, uncomplicated
CPT/HCPCS: 36415; 74177; 80053; 81001; 83690; 85025; 85610; 96374; 99284; A9270; G0480; Q9967; 80320; 81003; 87086

== ENCOUNTER 2022-11-16 08:49 | Outpatient (CLI) | payer MEDICARE ==
[2022-11-16 11:43] LABS: BASOPHILS # (AUTO) 0.1 10^3/uL (0.0-0.1); BASOPHILS % (AUTO) 0.8 %; EOSINOPHILS # (AUTO) 0.1 10^3/uL (0.0-0.7); EOSINOPHILS % (AUTO) 1.7 %; HCT - HEMATOCRIT 56.8 % (42.0-52.0); HGB - HEMOGLOBIN 19.3 g/dL (14.0-18.0); LYMPHOCYTES # (AUTO) 2.7 10^3/uL (1.5-3.5); MEAN CORPUSCULAR HEMOGLOBIN 31.7 pg (27.0-31.0); MEAN CORPUSCULAR VOLUME 93.4 fL (80.0-94.0); MEAN PLATELET VOLUME 11.4 fL (7.4-11.4); MONOCYTES # (AUTO) 0.6 10^3/uL (0.0-1.0); MONOCYTES % (AUTO) 7.6 %; NEUTROPHILS # (AUTO) 4.2 10^3/uL (1.5-6.6); NEUTROPHILS % (AUTO) 54.6 %; PLT - PLATELET COUNT 229 10^3/uL (130-450); RED BLOOD COUNT 6.08 10^6/uL (4.70-6.10); RED CELL DISTRIBUTION WIDTH 13.8 % (12.0-15.0); WHITE BLOOD COUNT 7.7 x10^3/uL (4.8-10.8)
[2022-11-16 13:20] LABS: ALBUMIN 4.1 g/dL (3.2-5.5); ALBUMIN/GLOBULIN RATIO 1.3 (1.0-2.2); ALKALINE PHOSPHATASE 74 IU/L (42-121); ALT ALANINE AMINOTRANSFERASE 39 IU/L (10-60); AST ASPARTATE AMINOTRANSFERASE 35 IU/L (10-42); BILIRUBIN,TOTAL 0.8 mg/dL (0.2-1.0); BUN - BLOOD UREA NITROGEN 9 mg/dL (6-20); CALCIUM 9.1 mg/dL (8.5-10.3); CARBON DIOXIDE - CO2 24 mmol/L (21-32); CHLORIDE 105 mmol/L (101-111); CHOLESTEROL 171 mg/dL; GFR - MDRD 76 (>89); GLUCOSE 129 mg/dL (70-100); HDL CHOLESTEROL 43 mg/dL; LDL CHOLESTEROL,CALCULATED 92 mg/dL; LDL/HDL RATIO 2.1 (<3.6); POTASSIUM 3.8 mmol/L (3.5-5.0); SODIUM 137 mmol/L (135-145); TOTAL PROTEIN 7.3 g/dL (6.7-8.2); TRIGLYCERIDES 180 mg/dL; VLDL CHOLESTEROL 36 mg/dL
== END 2022-11-16 08:50 | disposition home or self-care (01) ==
LOC: LAB.N 08:49
PROVIDERS: ATTEND Physician Assistant
DX: I10 Essential (primary) hypertension (principal); E78.5 Hyperlipidemia, unspecified; Z12.5 Encounter for screening for malignant neoplasm of prostate
CPT/HCPCS: 36415; 80053; 80061; 85025; G0103; 83721; 84153

== ENCOUNTER 2023-09-18 08:20 | Outpatient (CLI) | payer MEDICARE ==
[2023-09-18 12:27] LABS: BASOPHILS # (AUTO) 0.1 10^3/uL (0.0-0.1); BASOPHILS % (AUTO) 0.9 %; EOSINOPHILS # (AUTO) 0.1 10^3/uL (0.0-0.7); EOSINOPHILS % (AUTO) 1.6 %; HCT - HEMATOCRIT 58.9 % (42.0-52.0); HGB - HEMOGLOBIN 19.9 g/dL (14.0-18.0); LYMPHOCYTES # (AUTO) 2.7 10^3/uL (1.5-3.5); LYMPHOCYTES % (AUTO) 33.1 %; MEAN CORPUSCULAR HEMOGLOBIN 31.7 pg (27.0-31.0); MEAN CORPUSCULAR HGB CONC 33.8 g/dL (32.0-36.0); MEAN CORPUSCULAR VOLUME 93.9 fL (80.0-94.0); MEAN PLATELET VOLUME 11.6 fL (7.4-11.4); MONOCYTES # (AUTO) 0.6 10^3/uL (0.0-1.0); MONOCYTES % (AUTO) 7.1 %; NEUTROPHILS # (AUTO) 4.6 10^3/uL (1.5-6.6); NEUTROPHILS % (AUTO) 56.9 %; PLT - PLATELET COUNT 205 10^3/uL (130-450); RED BLOOD COUNT 6.27 10^6/uL (4.70-6.10); RED CELL DISTRIBUTION WIDTH 14.2 % (12.0-15.0); WHITE BLOOD COUNT 8.1 x10^3/uL (4.8-10.8)
[2023-09-18 12:52] LABS: ALBUMIN 4.6 g/dL (3.2-5.5); ALBUMIN/GLOBULIN RATIO 1.8 (1.0-2.2); ALKALINE PHOSPHATASE 70 IU/L (42-121); ALT ALANINE AMINOTRANSFERASE 32 IU/L (10-60); AST ASPARTATE AMINOTRANSFERASE 26 IU/L (10-42); BUN - BLOOD UREA NITROGEN 9 mg/dL (6-20); CALCIUM 9.7 mg/dL (8.5-10.3); CARBON DIOXIDE - CO2 29 mmol/L (21-32); CHLORIDE 104 mmol/L (101-111); CHOL/HDL RATIO 3.1 (<5.0); CHOLESTEROL 165 mg/dL; CREATININE 1.1 mg/dL (0.6-1.3); GFR - MDRD 68 (>89); GLUCOSE 102 mg/dL (74-104); HDL CHOLESTEROL 53 mg/dL; LDL CHOLESTEROL,CALCULATED 88 mg/dL; LDL/HDL RATIO 1.7 (<3.6); POTASSIUM 4.2 mmol/L (3.5-4.5); SODIUM 138 mmol/L (135-145); TOTAL PROTEIN 7.2 g/dL (6.4-8.9); TRIGLYCERIDES 121 mg/dL (48-352); VLDL CHOLESTEROL 24 mg/dL
== END 2023-09-18 08:21 | disposition home or self-care (01) ==
LOC: LAB.N 08:20
PROVIDERS: ATTEND Internal Medicine
DX: I10 Essential (primary) hypertension (principal); E78.5 Hyperlipidemia, unspecified; K70.30 Alcoholic cirrhosis of liver without ascites; Z12.5 Encounter for screening for malignant neoplasm of prostate
CPT/HCPCS: 36415; 80053; 80061; 82105; 85025; G0103; 83721; 84153